=== PATIENT | female | born 1950 | race Caucasian/White ===

== ENCOUNTER 2020-03-10 23:53 | Emergency (ER) | payer OTHER ==
[2020-03-11] MEDS ORDERED: solu-MEDROL 125 MG IV ONE (00:02)
[2020-03-11] MEDS ORDERED: PROVENTIL 2.5 MG/3 ML NEB IH ONE ×2 (00:02→00:20)
--- NOTE | 2020-03-11 00:02 | ERPHSYRPT ---
- History of Present Illness Time Seen by Provider: 03/11/20 00:02 Source: patient, EMS Exam Limitations: no limitations Physician History: This is a 69-year-old white female who a few days ago was cleaning using bleach and has noticed that she has had wheezing, cough and shortness of breath over the last few days. Symptoms were worse tonight. Patient denies fever. She does not have chest pain. She does feel as though there was a little bit of a tightness in her neck when swallowing and breathing. She has no abdominal pain she is had no nausea vomiting or diarrhea. She has not been exposed to anybody that she is aware of that has had tested positive for the COVID-19 virus. Timing/Duration: day(s) Cough Quality/Degree: mild, dry cough Possible Cause: no prior episodes Associated Symptoms: cough, shortness of breath (Mild), No fever, No chills, No chest pain/soreness, No muscle aches Allergies/Adverse Reactions: aspirin Allergy (Verified 03/11/20 00:09) naproxen Allergy (Verified 03/11/20 00:09) Home Medications: Dexlansoprazole [Dexilant] 60 mg PO DAILY 03/11/20 [History] Divalproex Sodium [Depakote] 500 mg PO BID 03/11/20 [History] Furosemide 40 mg PO DAILY 03/11/20 [History] Meclizine HCl 25 mg PO DAILY 03/11/20 [History] Omeprazole 40 mg PO DAILY 03/11/20 [History] Phenytoin Sodium Extended [Dilantin] 200 mg PO BID 03/11/20 [History] Trazodone HCl 50 mg [Desyrel 50 mg] 50 mg PO DAILY 03/11/20 [History] atenoloL [Atenolol] 25 mg PO DAILY 03/11/20 [History] Travel Risk - International Travel Have you traveled outside of the country in past 3 weeks: No - Coronavirus Screening Are you exhibiting any of the following symptoms?: Yes Symptoms: Cough: New Onset, Shortness of Breath Close contact with a COVID-19 positive Pt in past 14-21 Days: No - Review of Systems Constitutional: No Symptoms Eyes: No Symptoms Ears, Nose, & Throat: No Symptoms Respiratory: Cough, Dyspnea (Mild), No Stridor, No Wheezing Cardiac: No Symptoms Abdominal/Gastrointestinal: No Symptoms Genitourinary Symptoms: No Symptoms Musculoskeletal: No Symptoms Skin: No Symptoms Neurological: No Symptoms Psychological: No Symptoms Endocrine: No Symptoms Hematologic/Lymphatic: No Symptoms Immunological/Allergic: No Symptoms All Other Systems: Reviewed and Negative - Past Medical History Pertinent Past Medical History: Yes Neurological History: No Pertinent History ENT History: No Pertinent History Cardiac History: No Pertinent History Respiratory History: No Pertinent History Endocrine Medical History: No Pertinent History Musculoskeletal History: No Pertinent History GI Medical History: No Pertinent History History: No Pertinent History Psycho-Social History: No Pertinent History Female Reproductive Disorders: No Pertinent History - Past Surgical History Neuro Surgical History: No Pertinent History Cardiac: No Pertinent History Respiratory: No Pertinent History Gastrointestinal: No Pertinent History Genitourinary: No Pertinent History Musculoskeletal: No Pertinent History Female Surgical History: No Pertinent History - Nursing Vital Signs Nursing Vital Signs: Initial Vital Signs Temperature 98.5 F 03/11/20 00:00 Pulse Rate 86 03/11/20 00:00 Respiratory Rate 17 03/11/20 00:00 Blood Pressure 147/86 03/11/20 00:00 O2 Sat by Pulse Oximetry 97 03/11/20 00:00 Pain Scale Pain Intensity 0 - Physical Exam General Appearance: mild distress, alert, anxiety Eye Exam: PERRL/EOMI, eyes nml inspection Ears, Nose, Throat Exam: normal ENT inspection, moist mucous membranes Neck Exam: normal inspection, non-tender, supple, full range of motion Respiratory Exam: normal breath sounds, lungs clear, airway intact, No chest tenderness, No respiratory distress, No rhonchi, No wheezing, No stridor Cardiovascular Exam: regular rate/rhythm, normal heart sounds, normal peripheral pulses Gastrointestinal/Abdomen Exam: soft, normal bowel sounds, No tenderness Pelvic Exam: not done Rectal Exam: not done Back Exam: normal inspection, normal range of motion, No CVA tenderness, No vertebral tenderness Extremity Exam: normal inspection, normal range of motion, pelvis stable Neurologic Exam: alert, oriented x 3, cooperative, barrel centerer II-XII nml as tested, normal mood/affect, nml cerebellar function, nml station & gait, sensation nml Skin Exam: normal color, warm, dry Lymphatic Exam: No adenopathy O2 Delivery: Room Air - Course Nursing assessment & vital signs reviewed: Yes EKG Interpreted by Me: RATE (81), Sinus Rhythm, NORMAL AXIS, NORMAL INTERVALS, NORMAL QRS, Other (No acute ischemic changes. 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 STAT Care 03/11/20 00:03 Active EKG-ER Only STAT Care 03/11/20 00:02 Active IV Insertion STAT Care 03/11/20 00:02 Active Pulse Oximetry (ED) STAT Care 03/11/20 00:02 Active CHEST 1 VIEW (PORTABLE) Stat Exams 03/11/20 00:03 Taken BLOOD CULTURE Stat Lab 03/11/20 01:10 Received CBC W DIFF Stat Lab 03/11/20 01:00 Completed CMP Stat Lab 03/11/20 01:00 Completed Lactic Acid Stat Lab 03/11/20 01:10 Completed Manual Differential NC Stat Lab 03/11/20 01:00 Completed NT PRO BNP Stat Lab 03/11/20 01:00 Completed TROPONIN Q3H Lab 03/11/20 01:00 Completed TROPONIN Q3H Lab 03/11/20 03:15 Ordered TROPONIN Q3H Lab 03/11/20 06:15 Ordered TROPONIN Q3H Lab 03/11/20 09:15 Ordered TROPONIN Q3H Lab 03/11/20 12:15 Ordered Respiratory Therapy Assessment DAILY RT 03/11/20 00:24 Completed Medication Summary Discontinued Medications Generic Name Dose Route Start Last Admin Trade Name Luis Aq PRN Reason Stop Dose Admin Albuterol Sulfate 2.5 mg 03/11/20 00:02 03/11/20 00:22 Proventil 2.5 Mg/3 Ml Neb IH 03/11/20 00:03 2.5 mg STAT ONE Administration Albuterol Sulfate Confirm 03/11/20 00:20 Proventil 2.5 Mg/3 Ml Neb Administered 03/11/20 00:21 Dose 2.5 mg IH .STK-MED ONE Divalproex Sodium 500 mg 03/11/20 01:[address] 250 Mg Tab PO 03/11/20 01:49 STAT ONE Methylprednisolone Sodium Succinate 125 mg 03/11/20 00:02 03/11/20 00:41 Solu-Medrol 125 Mg IV 03/11/20 00:03 125 mg STAT ONE Administration Methylprednisolone Sodium Succinate Confirm 03/11/20 00:39 Solu-Medrol 125 Mg Administered 03/11/20 00:40 Dose 125 mg .ROUTE .STK-MED ONE Phenytoin Sodium 200 mg 03/11/20 01:47 Dilantin 100 Mg PO 03/11/20 01:48 STAT ONE Lab/Rad Data: Laboratory Result Diagrams 03/11/20 01:00 03/11/20 01:00 Laboratory Results 03/11/20 03/11/20 03/11/20 Range/Units 01:10 01:00 01:00 WBC (4.0-10.5) K/mm3 RBC (4.1-5.4) M/mm3 Hgb (12.0-16.0) gm/dl Hct (35-47) % MCV (78-100) fl MCH (26-32) pg MCHC (32-36) g/dl RDW (11.5-14.0) % Plt Count (150-450) K/mm3 MPV (7.5-11.0) fl Sodium 138 (137-145) mmol/L Potassium 3.8 (3.5-5.1) mmol/L Chloride 104 (98-107) mmol/L Carbon Dioxide 26 (22-30) mmol/L Anion Gap 11.9 (5-15) MEQ/L BUN 27 H (7-17) mg/dL Creatinine 0.71 (0.52-1.04) mg/dL Estimated GFR > 60.0 ML/MIN Glucose 139 H (74-106) mg/dL Lactic Acid 2.2 H (0.4-2.0) Calcium 8.7 (8.4-10.2) mg/dL Total Bilirubin 0.30 (0.2-1.3) mg/dL AST 26 (14-36) U/L ALT 19 (0-35) U/L Alkaline Phosphatase 77 (38-126) U/L Troponin I < 0.012 (0.000-0.034) ng/mL NT-Pro-B Natriuret Pep 68.7 (0-900) pg/mL Serum Total Protein 6.7 (6.3-8.2) g/dL Albumin 3.8 (3.5-5.0) g/dL 03/11/20 Range/Units 01:00 WBC 8.2 (4.0-10.5) K/mm3 RBC 4.13 (4.1-5.4) M/mm3 Hgb 13.6 (12.0-16.0) gm/dl Hct 42.0 (35-47) % MCV 101.7 H (78-100) fl MCH 32.9 H (26-32) pg MCHC 32.4 (32-36) g/dl RDW 13.1 (11.5-14.0) % Plt Count 199 (150-450) K/mm3 MPV 10.5 (7.5-11.0) fl Sodium (137-145) mmol/L Potassium (3.5-5.1) mmol/L Chloride (98-107) mmol/L Carbon Dioxide (22-30) mmol/L Anion Gap (5-15) MEQ/L BUN (7-17) mg/dL Creatinine (0.52-1.04) mg/dL Estimated GFR ML/MIN Glucose (74-106) mg/dL Lactic Acid (0.4-2.0) Calcium (8.4-10.2) mg/dL Total Bilirubin (0.2-1.3) mg/dL AST (14-36) U/L ALT (0-35) U/L Alkaline Phosphatase (38-126) U/L Troponin I (0.000-0.034) ng/mL NT-Pro-B Natriuret Pep (0-900) pg/mL Serum Total Protein (6.3-8.2) g/dL Albumin (3.5-5.0) g/dL - Progress Progress: improved, re-examined Air Movement: good Progress Note: 03/11/20 02:25 cHest x-ray reveals no acute pulmonary process Blood Culture(s) Obtained: Yes Antibiotics given: No Counseled pt/family regarding: lab results, diagnosis, need for follow-up, rad results - Departure Departure Disposition: Home Clinical Impression: Acute chemical bronchitis Condition: Stable Critical Care Time: No Referrals: DOCTOR,NO FAMILY [Primary Care Provider] - Additional Instructions: Drink plenty fluids. Take medication as prescribed. Follow-up with your primary care provider for persistent symptoms. Return to the emergency department if symptoms worsen Prescriptions: Prednisone 10 mg [Deltasone 10 mg] 10 mg PO TID #12 tablet Albuterol 8 gm Mdi Hfa [Ventolin Hfa MDI] 8 gm IH Q4H #1 [email or web address]
[2020-03-11] MEDS ORDERED: solu-MEDROL 125 MG ONE (00:39)
[2020-03-11 01:24] LABS: Hemoglobin 13.6 gm/dl (12.0-16.0); Mean Cell Volume 101.7 fl (78-100); Mean Corpuscular Hemoglobin 32.9 pg (26-32); Mean Corpuscular Hgb Concent. 32.4 g/dl (32-36); Mean Platelet Volume 10.5 fl (7.5-11.0); Platelet Count 199 K/mm3 (150-450); Red Blood Count 4.13 M/mm3 (4.1-5.4); Red Cell Distribution Width 13.1 % (11.5-14.0); White Blood Count 8.2 K/mm3 (4.0-10.5)
[2020-03-11] MEDS ORDERED: Dilantin 100 MG PO ONE (01:47)
[2020-03-11 01:48] LABS: ALBUMIN 3.8 g/dL (3.5-5.0); ALKALINE PHOSPHATASE 77 U/L (38-126); ANION GAP 11.9 MEQ/L (5-15); BLOOD UREA NITROGEN 27 mg/dL (7-17); CHLORIDE 104 mmol/L (98-107); Calcium 8.7 mg/dL (8.4-10.2); Carbon Dioxide 26 mmol/L (22-30); Creatinine 1 0.71 mg/dL (0.52-1.04); Glucose 139 mg/dL (74-106); NT PRO BNP 68.7 pg/mL (0-900); Potassium 3.8 mmol/L (3.5-5.1); SGOT/AST 26 U/L (14-36); SGPT/ALT 19 U/L (0-35); SODIUM 138 mmol/L (137-145); Total Protein 6.7 g/dL (6.3-8.2)
[2020-03-11 02:21] LABS: INFLUENZA A NEGATIVE (NEGATIVE); INFLUENZA B NEGATIVE (NEGATIVE); RESPIRATORY SYNCTIAL VIRUS NEGATIVE (Negative)
[2020-03-11 04:00] VITALS: PULSE 78
[2020-03-11 04:01] VITALS: BP 166/90; O2SAT 98
[2020-03-11 04:16] LABS: Eosinophil 4 % (0.00-3.0); Lymphocytes 47 % (24-44); Monocyte 8 % (0.0-12.0); Neutrophils 41 % (36.0-66.0); Total Cells Counted 100
[2020-03-11 04:18] LABS: ANISOCYTOSIS 1+; Platelet Estimate NORMAL (NORMAL)
--- NOTE | 2020-03-11 09:31 | XRAY ---
Indication: Cough and wheezing. Comparison: None Portable apical lordotic chest demonstrates left mid to lower lung subsegmental atelectasis/scarring, scattered bilateral calcified granulomas, and right hemidiaphragm elevation. Remaining heart and upper lung unremarkable. Bony thorax demonstrates mild degenerative changes and lower cervical fusion.
== END 2020-03-11 03:55 | disposition home or self-care (01) ==
LOC: ED 23:53
DX: J68.0 Bronchitis and pneumonitis due to chemicals, gases, fumes and vapors (principal)
CPT/HCPCS: 36000; 36415; 71045; 80053; 83605; 83880; 84484; 85025; 86769; 87040; 87631; 93005; 93041; 94640; 94760; 96374; 99284; J2930; J7609; A9270-GY

== ENCOUNTER 2021-08-13 16:19 | Emergency (ER) | payer MEDICARE ==
[2021-08-13] MEDS ORDERED: DUONEB 0.5-3 MG/3 ml Neb IH ONE ×2 (16:40→17:14)
[2021-08-13] MEDS ORDERED: solu-MEDROL 125 MG, Sterile H2O 10 ml 2 ML IV ONE ×2 (16:40)
[2021-08-13] MEDS ORDERED: solu-MEDROL ONE (16:51)
[2021-08-13] MEDS ORDERED: Magnesium 1 Gm / 100 Ml D5W*** 100 ML IV ONE ×2 (16:51→18:21)
[2021-08-13] MEDS ORDERED: Sterile H2O 10 ml IJ ONE (16:51)
[2021-08-13] MEDS: Magnesium 1 Gm / 100 Ml D5W*** 100 ML IV SCH ×2 (16:52→18:23)
[2021-08-13 17:08] LABS: Hematocrit 39.9 % (35-47); Hemoglobin 12.7 gm/dl (12.0-16.0); Mean Cell Volume 104.7 fl (78-100); Mean Corpuscular Hemoglobin 33.3 pg (26-32); Mean Corpuscular Hgb Concent. 31.8 g/dl (32-36); Platelet Count 217 K/mm3 (150-450); Red Blood Count 3.81 M/mm3 (4.1-5.4); Red Cell Distribution Width 12.9 % (11.5-14.0); White Blood Count 6.7 K/mm3 (4.0-10.5)
[2021-08-13 17:27] LABS: INFLUENZA A NEGATIVE (NEGATIVE); INFLUENZA B NEGATIVE (NEGATIVE)
[2021-08-13 17:32] LABS: ALBUMIN 3.9 g/dL (3.5-5.0); ALKALINE PHOSPHATASE 62 U/L (38-126); ANION GAP 10.7 MEQ/L (5-15); BLOOD UREA NITROGEN 22 mg/dL (7-17); CHLORIDE 101 mmol/L (98-107); Calcium 8.6 mg/dL (8.4-10.2); Carbon Dioxide 30 mmol/L (22-30); Creatinine 1 0.94 mg/dL (0.52-1.04); EST GLOMERULAR FILTRATION RATE > 60.0 ML/MIN; Glucose 122 mg/dL (74-106); NT PRO BNP 250 pg/mL (0-900); Potassium 4.7 mmol/L (3.5-5.1); SGOT/AST 24 U/L (14-36); SGPT/ALT 18 U/L (0-35); SODIUM 137 mmol/L (137-145); Total Protein 6.8 g/dL (6.3-8.2)
[2021-08-13 17:49] LABS: ATYPICAL LYMPHS 5 %; Eosinophil 4 % (0.00-3.0); Lymphocytes 25 % (24-44); Monocyte 6 % (0.0-12.0); Neutrophils 60 % (36.0-66.0); Platelet Estimate NORMAL (NORMAL); Total Cells Counted 100
--- NOTE | 2021-08-13 18:24 | ERPHSYRPT ---
- History of Present Illness Time Seen by Provider: 08/13/21 16:22 Source: patient Exam Limitations: no limitations Patient Subjective Stated Complaint: Patient states she has been having SOB, cough, and fever x 7 days Triage Nursing Assessment: patient to ed with sob cough and fever x 7 days, patient audibly wheezing and has diminished breath sounds in lower lobes. Patient is pale warm and dry and retracting at this time with labored breathing. Patient has occasional dry cough. Physician History: Patient here with cough, fever, chills. Patient appears to have a viral illness. Also history of COPD. Patient is unvaccinated against COVID-19. Patient initially presented with some wheezing and raspiness. Was given a breathing treatment and steroids in route. No other falls or trauma. Patient has not followed up with her PCP. Symptoms have been ongoing for 7 days. Patient has no active chest pain. No crushing chest pain. No signs or symptoms of a aortic dissection or PE. Timing/Duration: day(s) Severity: mild Modifying Factors: Improves With: medication, movement, rest, acetaminophen Associated Symptoms: shortness of breath Allergies/Adverse Reactions: aspirin Allergy (Verified 03/11/20 00:09) naproxen Allergy (Verified 03/11/20 00:09) Home Medications: Dexlansoprazole [Dexilant] 60 mg PO DAILY 03/11/20 [History] Divalproex Sodium [Depakote] 500 mg PO BID 03/11/20 [History] Furosemide 40 mg PO DAILY 03/11/20 [History] Meclizine HCl 25 mg PO DAILY 03/11/20 [History] Omeprazole 40 mg PO DAILY 03/11/20 [History] Phenytoin Sodium Extended [Dilantin] 200 mg PO BID 03/11/20 [History] Trazodone HCl 50 mg [Desyrel 50 mg] 50 mg PO DAILY 03/11/20 [History] atenoloL [Atenolol] 25 mg PO DAILY 03/11/20 [History] Hydrocodone/Acetaminophen [Hydrocodone-Acetamin 10-325 mg] 1 tab PO PRN 08/13/21 [History] Hx Tetanus, Diphtheria Vaccination/Date Given: Yes Hx Influenza Vaccination/Date Given: Yes Hx Pneumococcal Vaccination/Date Given: No Travel Risk - International Travel Have you traveled outside of the country in past 3 weeks: No - Coronavirus Screening Are you exhibiting any of the following symptoms?: Yes Symptoms: Fever, Cough: New Onset, Shortness of Breath Close contact with a COVID-19 positive Pt in past 14-21 Days: No - Vaccine Status Have you recieved a Covid-19 vaccination: No - Review of Systems Constitutional: No Fever, No Chills Eyes: No Symptoms Ears, Nose, & Throat: No Symptoms Respiratory: Dyspnea, Wheezing, No Cough Cardiac: No Chest Pain, No Edema, No Syncope Abdominal/Gastrointestinal: No Abdominal Pain, No Nausea, No Vomiting, No Diarrhea Genitourinary Symptoms: No Dysuria Musculoskeletal: No Back Pain, No Neck Pain Skin: No Rash Neurological: No Dizziness, No Focal Weakness, No Sensory Changes Psychological: No Symptoms Endocrine: No Symptoms All Other Systems: Reviewed and Negative - Past Medical History Pertinent Past Medical History: Yes Neurological History: Epilepsy ENT History: No Pertinent History Cardiac History: Hypertension Respiratory History: Asthma, COPD Endocrine Medical History: No Pertinent History Musculoskeletal History: Arthritis, Osteoporosis GI Medical History: No Pertinent History History: No Pertinent History Psycho-Social History: No Pertinent History Female Reproductive Disorders: No Pertinent History - Past Surgical History Past Surgical History: Yes Neuro Surgical History: No Pertinent History Cardiac: No Pertinent History Respiratory: No Pertinent History Gastrointestinal: No Pertinent History Genitourinary: No Pertinent History Musculoskeletal: No Pertinent History Female Surgical History: No Pertinent History - Social History Smoking Status: Never smoker Exposure to second hand smoke: Yes Drug Use: none Patient Lives Alone: Yes - Nursing Vital Signs Nursing Vital Signs: Initial Vital Signs Temperature 97.5 F 08/13/21 16:21 Pulse Rate 68 08/13/21 16:21 Respiratory Rate 20 08/13/21 16:21 Blood Pressure 165/96 08/13/21 16:21 O2 Sat by Pulse Oximetry 94 L 08/13/21 16:21 Pain Scale Pain Intensity 5 - Physical Exam General Appearance: no apparent distress, alert Eye Exam: PERRL/EOMI, eyes nml inspection Ears, Nose, Throat Exam: normal ENT inspection, TMs normal, pharynx normal, moist mucous membranes Neck Exam: normal inspection, non-tender, supple, full range of motion Respiratory Exam: wheezing, No respiratory distress Cardiovascular Exam: regular rate/rhythm, normal heart sounds, normal peripheral pulses Gastrointestinal/Abdomen Exam: soft, normal bowel sounds, No tenderness, No mass Back Exam: normal inspection, normal range of motion, No CVA tenderness, No vertebral tenderness Extremity Exam: normal inspection, normal range of motion, pelvis stable Neurologic Exam: alert, oriented x 3, cooperative, normal mood/affect, nml cerebellar function, nml station & gait, sensation nml, No motor deficits Skin Exam: normal color, warm, dry, No rash Lymphatic Exam: No adenopathy SpO2: 97 - Course Nursing assessment & vital signs reviewed: Yes EKG Interpreted by Me: Sinus Rhythm Ordered Tests: Active Orders 24 hr Category Date Time Status 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 [employer] STAT Care 08/13/21 16:40 Active CHEST 1 VIEW (PORTABLE) Stat Exams 08/13/21 17:13 Taken CBC W DIFF Stat Lab 08/13/21 17:03 Completed CMP Stat Lab 08/13/21 17:03 Completed INFLUENZA A+B WINNIE Stat Lab 08/13/21 17:03 Completed Manual Differential NC Stat Lab 08/13/21 17:03 Completed NT PRO BNP Stat Lab 08/13/21 17:03 Completed TROPONIN Q3H Lab 08/13/21 17:03 Completed TROPONIN Q3H Lab 08/14/21 01:45 Ordered TROPONIN Q3H Lab 08/14/21 04:45 Ordered Respiratory Therapy Assessment ONCE RT 08/13/21 17:56 Active Medication Summary Generic Name Dose Route Start Last Admin Trade Name Freq PRN Reason Stop Dose Admin Magnesium Sulfate/Dextrose 100 mls @ 100 mls/hr 08/13/21 16:45 08/13/21 18:23 Magnesium 1 Gm / 100 Ml D5w IV 08/13/21 18:44 100 mls/hr Q1H ADRIANA Administration Discontinued Medications Generic Name Dose Route Start Last Admin Trade Name Freq PRN Reason Stop Dose Admin Albuterol/Ipratropium 3 ml 08/13/21 16:40 08/13/21 17:20 Ipratropium/Albuterol Sulfate 3 Ml Ampul.Neb IH 08/13/21 16:41 3 ml STAT ONE Administration Albuterol/Ipratropium Confirm 08/13/21 17:14 Ipratropium/Albuterol Sulfate 3 Ml Ampul.Neb Administered 08/13/21 17:15 Dose 3 ml IH .STK-MED ONE Methylprednisolone Sodium 0 mg 08/13/21 16:40 08/13/21 16:52 Succinate 125 mg/ Sterile IV 08/13/21 16:41 125 mg Water 2 ml STAT ONE Administration Methylprednisolone Sodium Succinate Confirm 08/13/21 16:51 Methylprednis Sod Succ 125 Mg/2 Ml Vial Administered 08/13/21 16:52 Dose 125 mg .ROUTE .[employer] ONE Sterile Water Confirm 08/13/21 16:51 Water For Injection,Sterile 10 Ml Vial Administered 08/13/21 16:52 Dose 10 ml IJ .[employer] ONE Lab/Rad Data: Laboratory Result Diagrams 08/13/21 17:03 08/13/21 17:03 Laboratory Results 08/13/21 08/13/21 08/13/21 Range/Units 17:03 17:03 17:03 WBC 6.7 (4.0-10.5) K/mm3 RBC 3.81 L (4.1-5.4) M/mm3 Hgb 12.7 (12.0-16.0) gm/dl Hct 39.9 (35-47) % MCV 104.7 H (78-100) fl MCH 33.3 H (26-32) pg MCHC 31.8 L (32-36) g/dl RDW 12.9 (11.5-14.0) % Plt Count 217 (150-450) K/mm3 MPV 10.0 (7.5-11.0) fl Segmented Neutrophils 60 (36.0-66.0) % Lymphocytes (Manual) 25 (24-44) % Monocytes (Manual) 6 (0.0-12.0) % Eosinophils (Manual) 4 H (0.00-3.0) % Atypical Lymphocytes 5 % Platelet Estimate NORMAL (NORMAL) RBC Morphology NORMAL Sodium 137 (137-145) mmol/L Potassium 4.7 (3.5-5.1) mmol/L Chloride 101 (98-107) mmol/L Carbon Dioxide 30 (22-30) mmol/L Anion Gap 10.7 (5-15) MEQ/L BUN 22 H (7-17) mg/dL Creatinine 0.94 (0.52-1.04) mg/dL Estimated GFR > 60.0 ML/MIN Glucose 122 H (74-106) mg/dL Calcium 8.6 (8.4-10.2) mg/dL Total Bilirubin 0.50 (0.2-1.3) mg/dL AST 24 (14-36) U/L ALT 18 (0-35) U/L Alkaline Phosphatase 62 (38-126) U/L Troponin I < 0.012 (0.000-0.034) ng/mL NT-Pro-B Natriuret Pep 250 (0-900) pg/mL Serum Total Protein 6.8 (6.3-8.2) g/dL Albumin 3.9 (3.5-5.0) g/dL Influenza Type A Ag (NEGATIVE) Influenza Type B Ag (NEGATIVE) 08/13/21 Range/Units 17:03 WBC (4.0-10.5) K/mm3 RBC (4.1-5.4) M/mm3 Hgb (12.0-16.0) gm/dl Hct (35-47) % MCV (78-100) fl MCH (26-32) pg MCHC (32-36) g/dl RDW (11.5-14.0) % Plt Count (150-450) K/mm3 MPV (7.5-11.0) fl Segmented Neutrophils (36.0-66.0) % Lymphocytes (Manual) (24-44) % Monocytes (Manual) (0.0-12.0) % Eosinophils (Manual) (0.00-3.0) % Atypical Lymphocytes % Platelet Estimate (NORMAL) RBC Morphology Sodium (137-145) mmol/L Potassium (3.5-5.1) mmol/L Chloride (98-107) mmol/L Carbon Dioxide (22-30) mmol/L Anion Gap (5-15) MEQ/L BUN (7-17) mg/dL Creatinine (0.52-1.04) mg/dL Estimated GFR ML/MIN Glucose (74-106) mg/dL Calcium (8.4-10.2) mg/dL Total Bilirubin (0.2-1.3) mg/dL AST (14-36) U/L ALT (0-35) U/L Alkaline Phosphatase (38-126) U/L Troponin I (0.000-0.034) ng/mL NT-Pro-B Natriuret Pep (0-900) pg/mL Serum Total Protein (6.3-8.2) g/dL Albumin (3.5-5.0) g/dL Influenza Type A Ag NEGATIVE (NEGATIVE) Influenza Type B Ag NEGATIVE (NEGATIVE) - Progress Progress: improved Progress Note: 08/13/21 18:39 We'll obtain basic labs, fluids, EKG, troponin, chest x-ray - I feel comfortable with one time negative troponin given symptoms have improved and started greater then 6 hours ago. - EKG shows no ST changes - my read. See full read below. - O2 saturations consistently greater than 95%. - CXR shows no pneumonia, pneumothorax - my read Patient was treated with magnesium, second breathing treatment. Already received steroids. Patient overall looking and feeling improved. She was able to get up and ambulate to the bathroom without difficulty. She had no drop in her O2 saturations at this point in time. I did discuss going home with her. She requested that we do a Z-Yao. I do feel this is reasonable given she was likely does have a COPD exacerbation. We will do a Z-Yao, prednisone going home. Patient had no drop in her O2 sats. Heart rate and rest of vital signs are stable. Negative cardiac markers after 1 week of sickness. Plan to discharge patient home. Plan of care was discussed with patient and all questions answered. The patient is agreeable to be discharged home and both verbal and printed discharge instructions were provided.The patient agreed to seek outpatient follow up as discussed. The patient was given strict instructions to return to the emergency department for worsening symptoms or any other emergent concerns. The patient verbalized understanding. Counseled pt/family regarding: lab results, diagnosis, need for follow-up - Departure Departure Disposition: Home Clinical Impression: Viral illness, COPD exacerbation Condition: Stable Critical Care Time: No Referrals: ISACC CALABRESE NP [Primary Care Provider] - Follow up/PCP as directed Instructions: Chronic Obstructive Pulmonary Disease, Shortness of Breath (Dyspnea) (DC), Exacerbation of COPD (DC) Additional Instructions: You appear to be having a COPD exacerbation in the setting of a viral illness.Cough, congestion, and other symptoms appear to be viral in etiology. Symptomatic care: saline and suction to nose prn. Run a humidifier in bedroom. Elevate HOB to sleep and encourage fluids. They should use Tylenol and motrin as needed for fever and pain control. Return if not improving or worsens. Will also give you a Z-Yao and steroids. This is for COPD exacerbation in the setting of a viral illness. Prescriptions: Prednisone 10 mg [Deltasone 10 mg] 40 mg PO DAILY 5 Days #100 tablet Azithromycin 250 mg [Zithromax 250 MG TABLET] 250 mg PO ZPACK #6 tablet
[2021-08-13 18:52] VITALS: BP 126/58; PULSE 72; O2SAT 93
--- NOTE | 2021-08-14 08:04 | XRAY ---
Indication: Cough and short of breath. Suspect Covid 19. Comparison: March 11, 2020. Portable apical lordotic chest again demonstrates left mid lower lung subsegmental atelectasis/scarring, tiny scattered calcified granulomas, and right hemidiaphragm elevation. Heart borderline enlarged. Bony thorax intact again with osteopenia, degenerative changes, and lower cervical fusion hardware. Impression: Nonacute chest with chronic features.
== END 2021-08-13 19:02 | disposition home or self-care (01) ==
LOC: ED 16:19
DX: B34.9 Viral infection, unspecified (principal); J44.1 Chronic obstructive pulmonary disease with (acute) exacerbation; R05.9 Cough, unspecified; R50.9 Fever, unspecified; I10 Essential (primary) hypertension; Z79.891 Long term (current) use of opiate analgesic; Z79.52 Long term (current) use of systemic steroids; Z79.899 Other long term (current) drug therapy
CPT/HCPCS: 36415; 71045; 80053; 83880; 84484; 85025; 87400; 93041; 94640; 96374; 99284; U0003; J2930; J3475; A9270-GY

== ENCOUNTER 2021-10-04 12:50 | Day surgery (SDC) | payer MEDICARE ==
[2021-10-04] MEDS ORDERED: BUPIVACAINE 0.5% VIAL IJ ONE (12:51)
[2021-10-04] MEDS ORDERED: Depo-Medrol 40 MG/ML IM ONE (12:51)
[2021-10-04] MEDS ORDERED: Lactated Ringers 1,000 ML IV ONE (14:15)
[2021-10-04] MEDS ORDERED: DIPRIVAN 200 MG/20 ML IV ONE (14:56)
--- NOTE | 2021-10-04 16:58 | XRAY ---
Indication: Right SI joint injection. Intraoperative fluoroscopy provided for 14 seconds. 2 digital spot image submitted for interpretation demonstrates posterior needle tip projecting over the inferior right SI joint. Correlate with intraoperative findings/report.
--- NOTE | 2021-10-04 17:04 | XRAY ---
14 seconds fluoroscopy time in surgery for injection of the right SI joint.
== END 2021-10-04 15:21 | disposition home or self-care (01) ==
LOC: SDC-PAIN 12:50
PROVIDERS: ATTEND Psychiatry & Neurology Pain Medicine
DX: M46.1 Sacroiliitis, not elsewhere classified (principal); Z79.899 Other long term (current) drug therapy
CPT/HCPCS: 27096; 72100; 77002; G0260; 99100; J1030; J2704

== ENCOUNTER 2022-01-11 13:02 | Inpatient (IN) | payer MEDICARE ==
[2022-01-11] MEDS ORDERED: Zofran 4 MG/2 ML VIAL IV ONE (13:33)
[2022-01-11] MEDS ORDERED: MORPHINE SULFATE 4 MG INJ IV ONE ×2 (13:33→15:48)
[2022-01-11] MEDS ORDERED: Zofran 4 MG/2 ML VIAL ONE (13:48)
[2022-01-11] MEDS ORDERED: MORPHINE SULFATE 4 MG INJ ONE ×2 (13:48→15:48)
--- NOTE | 2022-01-11 13:54 | ERPHSYRPT ---
- History of Present Illness Time Seen by Provider: 01/11/22 13:33 Source: patient, EMS Exam Limitations: no limitations Patient Subjective Stated Complaint: weakness Triage Nursing Assessment: Patient brought into ED per EMS and transferred to bed with assist of 3. Patient A+O X3. Patient's skin pink, warm and dry. Patient complains of pain to left side of abdominal fold that is making it difficult to ambulate. Clusters of open blisters noted to left side abdominal fold. Patient complains of pain 5/10. Patient complains of weakness and not eating or drinking much the past couple of days. Physician History: 71 years old female history of hypertension, hyperlipidemia, COPD presented in the ER with chief complaint of generalized weakness fatigue and tiredness for the last couple of days with decreased oral intake and worsening of overall fatigue. Patient also reports having blisters/sore spots on the left groin area/lower abdominal fold which she has been treating her at home with [id number] triple antibiotic with no improvement and it hurts to ambulate. She also has mild nonproductive cough for the last couple of days without any chest pain palpitations or shortness of breath. No fever or chills reported. Timing/Duration: day(s) (2), gradual onset, worse Severity: moderate Modifying Factors: Worsens With: movement Associated Symptoms: loss of appetite, malaise, weakness Allergies/Adverse Reactions: aspirin Allergy (Verified 01/11/22 17:49) Nausea naproxen Allergy (Verified 01/11/22 17:49) Nausea ketorolac [From Toradol] Adverse Reaction (Verified 01/11/22 17:49) Nausea Home Medications: Divalproex Sodium [Depakote] 500 mg PO TID 03/11/20 [History] Furosemide 40 mg PO DAILY 03/11/20 [History] Omeprazole 40 mg PO BID 03/11/20 [History] Phenytoin Sodium Extended [Dilantin] 200 mg PO BID 03/11/20 [History] Trazodone HCl 50 mg [Desyrel 50 mg] 150 mg PO HS 03/11/20 [History] atenoloL [Atenolol] 25 mg PO DAILY 03/11/20 [History] Cholecalciferol (Vitamin D3) [Vitamin D3] 5,000 unit PO DAILY 01/11/22 [History] Folic Acid 0 mg PO DAILY 01/11/22 [History] Oxycodone HCl/Acetaminophen [Oxycodone-Acetaminophen 5-325] 1 each PO BIDPRN PRN 01/11/22 [History] Polyethylene Glycol 3350 17 gm [Miralax Powder 17GM PACKET] 17 gm PO DAILY 01/11/22 [History] Potassium Chloride 20 meq PO DAILY 01/11/22 [History] Ropinirole HCl 1 mg PO TID 01/11/22 [History] ondansetron HCL [Ondansetron HCl] 8 mg PO BID 01/11/22 [History] Hx Tetanus, Diphtheria Vaccination/Date Given: Yes Hx Influenza Vaccination/Date Given: Yes Hx Pneumococcal Vaccination/Date Given: No Immunizations Up to Date: Yes Travel Risk - International Travel Have you traveled outside of the country in past 3 weeks: No - Coronavirus Screening Are you exhibiting any of the following symptoms?: No Close contact with a COVID-19 positive Pt in past 14-21 Days: No - Vaccine Status Have you recieved a Covid-19 vaccination: No - Review of Systems Constitutional: No Symptoms Eyes: No Symptoms Ears, Nose, & Throat: No Symptoms Respiratory: Cough Cardiac: No Symptoms Abdominal/Gastrointestinal: Abdominal Pain Genitourinary Symptoms: No Symptoms Musculoskeletal: Arthralgias Skin: Rash, Skin Lesions Neurological: No Symptoms Endocrine: No Symptoms Hematologic/Lymphatic: No Symptoms Immunological/Allergic: No Symptoms - Past Medical History Pertinent Past Medical History: Yes Neurological History: Epilepsy ENT History: No Pertinent History Cardiac History: Hypertension Respiratory History: Asthma, COPD Endocrine Medical History: No Pertinent History Musculoskeletal History: Arthritis, Osteoporosis GI Medical History: No Pertinent History History: No Pertinent History Psycho-Social History: No Pertinent History Female Reproductive Disorders: No Pertinent History - Past Surgical History Past Surgical History: Yes Neuro Surgical History: No Pertinent History Cardiac: No Pertinent History Respiratory: No Pertinent History Gastrointestinal: No Pertinent History Genitourinary: No Pertinent History Musculoskeletal: No Pertinent History Female Surgical History: No Pertinent History - Social History Smoking Status: Never smoker Exposure to second hand smoke: Yes Drug Use: none Patient Lives Alone: Yes - Nursing Vital Signs Nursing Vital Signs: Initial Vital Signs Temperature 97.8 F 01/11/22 13:26 Pulse Rate 66 01/11/22 13:26 Respiratory Rate 18 01/11/22 13:26 Blood Pressure 124/78 01/11/22 13:26 O2 Sat by Pulse Oximetry 93 L 01/11/22 13:26 Pain Scale Pain Intensity 5 - Physical Exam General Appearance: no apparent distress, alert Eye Exam: PERRL/EOMI, other Ears, Nose, Throat Exam: normal ENT inspection, TMs normal, pharynx normal, moist mucous membranes Neck Exam: normal inspection, non-tender, full range of motion Respiratory Exam: rhonchi, wheezing Cardiovascular Exam: regular rate/rhythm, normal heart sounds Gastrointestinal/Abdomen Exam: soft, normal bowel sounds, No tenderness Back Exam: normal inspection, normal range of motion Extremity Exam: normal inspection, normal range of motion Neurologic Exam: alert, oriented x 3, cooperative, paint maker II-XII nml as tested Skin Exam: normal color, other (Multiple clusters/confluent vesicles and distinct groups with surrounding erythema. Tender to palpation.) SpO2 Interpretation: normal SpO2: 93 O2 Delivery: Room Air Ordered Tests: Medication Summary Generic Name Dose Route Start Last Admin Trade Name Freq PRN Reason Stop Dose Admin Acetaminophen 650 mg 01/11/22 17:41 Acetaminophen 325 Mg Tablet PO 02/10/22 17:40 Q4H PRN PRN PAIN AND/OR FEVER Acyclovir 800 mg 01/11/22 19:00 01/14/22 17:55 Acyclovir 800 Mg Tablet PO 02/10/22 18:59 800 mg 5XD ADRIANA Administration Albuterol/Ipratropium 3 ml 01/11/22 17:41 01/14/22 18:52 Ipratropium/Albuterol Sulfate 3 Ml Ampul.Neb IH 02/10/22 17:40 3 ml Q4HPRN PRN Administration SHORTNESS OF BREATH/WHEEZING Atenolol 25 mg 01/14/22 11:00 01/14/22 11:13 Atenolol 50 Mg Tablet PO 02/13/22 10:59 25 mg DAILY ADRIANA Administration Benzonatate 100 mg 01/14/22 10:11 01/14/22 11:13 Benzonatate 100 Mg Capsule PO 02/13/22 10:10 100 mg Q12H PRN PRN Administration COUGH Cholecalciferol 5,000 unit 01/14/22 11:00 01/14/22 11:03 Cholecalciferol (Vitamin D3) 1000 Unit Tablet PO 02/13/22 10:59 5,000 unit DAILY ADRIANA Administration Methylprednisolone Sodium 0 mg 01/13/22 14:00 01/14/22 13:51 Succinate 40 mg/ Sterile Water IV 02/12/22 13:59 40 mg 1 ml Q8HT ADRIANA Administration Divalproex Sodium 500 mg 01/11/22 22:00 01/14/22 13:52 Divalproex Sodium 250 Mg Tablet Delayed Release PO 02/10/22 21:59 500 mg TID ADRIANA Administration Folic Acid 0.5 mg 01/14/22 11:00 01/14/22 11:14 Folic Acid 1 Mg Tablet PO 02/13/22 10:59 0.5 mg DAILY ADRIANA Administration Furosemide 40 mg 01/14/22 11:00 01/14/22 11:15 Furosemide 40 Mg Tablet PO 02/13/22 10:59 40 mg DAILY ADRIANA Administration Gabapentin 300 mg 01/14/22 10:00 01/14/22 13:53 Gabapentin 300 Mg Capsule PO 02/13/22 09:59 300 mg TID ADRIANA Administration Sodium Chloride 1,000 mls @ 100 mls/hr 01/12/22 14:45 01/14/22 19:42 Sodium Chloride 0.9% 1000 Ml IV 02/11/22 14:44 100 mls/hr .Q10H ADRIANA Administration Morphine Sulfate 0 mg 01/12/22 14:47 01/14/22 18:02 Morphine Sulfate 30 Mg/30 Ml 1 Mg/Ml Vial IV 01/17/22 14:46 30 mg PRN PRN Administration Naloxone HCl 0.2 - 0.4 mg 01/12/22 15:15 Naloxone Hcl 0.4 Mg/Ml Ml IV 02/11/22 15:14 PRN PRN RESP. DEPRESSION / DLOC Nystatin 5 ml 01/12/22 13:00 01/14/22 17:54 Nystatin 60 Ml Suspension Bottle PO 02/11/22 12:59 5 ml QID ADRIANA Administration Ondansetron HCl 4 mg 01/11/22 17:41 Ondansetron Hcl 4 Mg/2 Ml Vial IV 02/10/22 17:40 Q6H PRN PRN NAUSEA/VOMITING Ondansetron HCl 8 mg 01/11/22 22:00 01/14/22 10:36 Zofran 4 Mg/Udtablet Orally Disintegrating PO 02/10/22 21:59 8 mg BID ADRIANA Administration Oxycodone/Acetaminophen 1 tab 01/11/22 18:39 01/12/22 13:40 Oxycodone / Apap 10/325 Mg 1 Tablet PO 01/16/22 18:38 1 tab Q4H PRN PRN Administration PAIN Pantoprazole Sodium 40 mg 01/12/22 10:00 01/14/22 10:14 Protonix (Pantoprazole) 40 Mg Tablet PO 02/10/22 21:59 40 mg BID ADRIANA Administration Phenytoin Sodium 200 mg 01/11/22 22:00 01/14/22 10:13 Phenytoin Sodium Extended 100 Mg Capsule PO 02/10/22 21:59 200 mg BID ADRIANA Administration Polyethylene Glycol 17 gm 01/14/22 10:00 01/14/22 11:01 Polyethylene Glycol 3350 17 Gm Packet PO 02/13/22 09:59 17 gm DAILY ADRIANA Administration Potassium Chloride 20 meq 01/14/22 11:00 01/14/22 11:15 Potassium Chloride Tab 10 Meq Tab PO 02/13/22 10:59 20 meq DAILY ADRIANA Administration Ropinirole HCl 1 mg 01/11/22 22:00 01/14/22 13:52 Ropinirole Hcl 0.5 Mg Tablet PO 02/10/22 21:59 1 mg TID ADRIANA Administration Trazodone HCl 150 mg 01/11/22 22:00 01/13/22 21:18 Trazodone Hcl 150 Mg Tablet PO 02/10/22 21:59 150 mg HS ADRIANA Administration Discontinued Medications Generic Name Dose Route Start Last Admin Trade Name Freq PRN Reason Stop Dose Admin Acyclovir 800 mg 01/11/22 16:20 01/11/22 16:40 Acyclovir 200 Mg Capsule PO 01/11/22 16:21 800 mg ONCE STA Administration Acyclovir Confirm 01/11/22 16:39 Acyclovir 200 Mg Capsule Administered 01/11/22 16:40 Dose 800 mg .ROUTE .STK-MED ONE Acyclovir Confirm 01/11/22 19:49 Acyclovir 200 Mg Capsule Administered 01/11/22 19:50 Dose 800 mg .ROUTE .STK-MED ONE Albuterol Sulfate 2.5 mg 01/12/22 10:00 01/12/22 18:08 Albuterol Sulfate 2.5 Mg/3 Ml Neb IH 02/11/22 09:59 2.5 mg TID ADRIANA Administration Methylprednisolone Sodium 0 mg 01/11/22 22:00 01/13/22 06:22 Succinate 80 mg/ Sterile Water IV 02/10/22 21:59 80 mg 2 ml Q8HT ADRIANA Administration Methylprednisolone Sodium 0 mg 01/13/22 14:00 Succinate 80 mg/ Sterile Water IV 02/12/22 13:59 2 ml Q8HT ADRIANA Cyanocobalamin 2,000 mcg 01/12/22 10:00 01/14/22 10:37 Cyanocobalamin 1000 Mcg/Ml Vial IM 01/14/22 10:01 2,000 mcg DAILY ADRIANA Administration Gabapentin 300 mg 01/12/22 14:45 01/13/22 21:18 Gabapentin 300 Mg Capsule PO 02/11/22 14:44 300 mg NOW ADRIANA Administration Gabapentin 300 mg 01/13/22 10:00 01/13/22 21:48 Gabapentin 300 Mg Capsule PO 01/13/22 22:01 Not Given BID ADRIANA Methylprednisolone Sodium Succinate Confirm 01/11/22 21:51 Methylprednis Sod Succ 125 Mg/2 Ml Vial Administered 01/11/22 21:52 Dose 125 mg .ROUTE .STK-MED ONE Methylprednisolone Sodium Succinate Confirm 01/12/22 05:56 Methylprednis Sod Succ 125 Mg/2 Ml Vial Administered 01/12/22 05:57 Dose 125 mg .ROUTE .STK-MED ONE Methylprednisolone Sodium Succinate Confirm 01/13/22 04:05 Methylprednisolone Sod Suc 40m 40 Mg/Ml Vial Administered 01/13/22 04:06 Dose 80 mg .ROUTE .STK-MED ONE Morphine Sulfate 4 mg 01/11/22 13:33 01/11/22 13:49 Morphine Sulfate 4 Mg/Ml Injection IV 01/11/22 13:34 4 mg STAT ONE Administration Morphine Sulfate Confirm 01/11/22 13:48 Morphine Sulfate 4 Mg/Ml Injection Administered 01/11/22 13:49 Dose 4 mg .ROUTE .STK-MED ONE Morphine Sulfate Confirm 01/11/22 15:48 Morphine Sulfate 4 Mg/Ml Injection Administered 01/11/22 15:49 Dose 4 mg .ROUTE .STK-MED ONE Morphine Sulfate 4 mg 01/11/22 15:48 01/11/22 15:48 Morphine Sulfate 4 Mg/Ml Injection IV 01/11/22 15:49 4 mg STAT ONE Administration Morphine Sulfate 2 mg 01/11/22 17:41 Morphine Sulfate 2 Mg/Ml Inj IV 01/16/22 17:40 Q4H PRN PRN PAIN Morphine Sulfate 2 mg 01/11/22 21:45 01/12/22 10:53 Morphine Sulfate 2 Mg/Ml Inj IV 01/16/22 21:44 2 mg Q4H PRN PRN Administration PAIN Non-Formulary Medication 1 each 01/12/22 14:39 01/12/22 15:12 Pharmacy Dose: Morphine Occupational Hygienist 1 Each Each IV 01/12/22 14:40 1 each STAT STA Administration Non-Formulary Medication 1 each 01/12/22 14:39 01/12/22 15:12 Pharmacy Dosing Request 01/12/22 14:40 1 each STAT ONE Administration Ondansetron HCl 4 mg 01/11/22 13:33 01/11/22 13:48 Ondansetron Hcl 4 Mg/2 Ml Vial IV 01/11/22 13:34 4 mg STAT ONE Administration Ondansetron HCl Confirm 01/11/22 13:48 Ondansetron Hcl 4 Mg/2 Ml Vial Administered 01/11/22 13:49 Dose 4 mg .ROUTE .STK-MED ONE Pantoprazole Sodium 40 mg 01/12/22 10:00 Pantoprazole 40 Mg Vial IV 02/11/22 09:59 Q24H10 ADRIANA Pantoprazole Sodium 80 mg 01/11/22 22:00 01/11/22 22:01 Protonix (Pantoprazole) 40 Mg Tablet PO 02/10/22 21:59 80 mg BID ADRIANA Administration Patient Own Medication 2 each 01/11/22 18:52 Patient Own Med Misc IH 02/10/22 18:51 Q4HPRN PRN SHORTNESS OF BREATH/WHEEZING Sterile Water Confirm 01/11/22 21:52 Water For Injection,Sterile 10 Ml Vial Administered 01/11/22 21:53 Dose 10 ml IJ .STK-MED ONE Lab/Rad Data: Laboratory Result Diagrams 01/11/22 13:33 01/11/22 14:18 Laboratory Results 01/11/22 01/11/22 01/11/22 Range/Units 16:47 16:11 14:18 WBC (4.0-10.5) x10^3/uL RBC (4.1-5.4) x10^6/uL Hgb (12.0-16.0) g/dL Hct (35-47) % MCV (78-100) fL MCH (26-32) pg MCHC (32-36) g/dL RDW (11.5-14.0) % Plt Count (150-450) x10^3/uL MPV (7.5-11.0) fL Gran % (36.0-66.0) % Immature Gran % (Auto) (0.00-0.4) % Nucleat RBC Rel Count (0.00-0.1) % Eos # (Auto) (0-0.5) x10^3/uL Immature Gran # (Auto) (0.00-0.03) x10^3u/L Absolute Lymphs (auto) (1.0-4.6) x10^3/uL Absolute Monos (auto) (0.0-1.3) x10^3/uL Absolute Nucleated RBC (0.00-0.01) x10^3u/L Lymphocytes % (24.0-44.0) % Monocytes % (0.0-12.0) % Eosinophils % (0.00-5.0) % Basophils % (0.0-0.4) % Absolute Granulocytes (1.4-6.9) x10^3/uL Basophils # (0-0.4) x10^3/uL Sodium (137-145) mmol/L Potassium (3.5-5.1) mmol/L Chloride (98-107) mmol/L Carbon Dioxide (22-30) mmol/L Anion Gap (5-15) MEQ/L BUN (7-17) mg/dL Creatinine (0.52-1.04) mg/dL Estimated GFR ML/MIN Glucose (74-106) mg/dL Lactic Acid (0.4-2.0) Calcium (8.4-10.2) mg/dL Magnesium (1.6-2.3) mg/dL Total Bilirubin (0.2-1.3) mg/dL AST (14-36) U/L ALT (0-35) U/L Alkaline Phosphatase (38-126) U/L Troponin I < 0.012 < 0.012 (0.000-0.034) ng/mL NT-Pro-B Natriuret Pep (0-900) pg/mL Serum Total Protein (6.3-8.2) g/dL Albumin (3.5-5.0) g/dL Urinalys Dipstick Clnc Urine Color (YELLOW) Urine Appearance (CLEAR) Urine pH (5-6) Ur Specific [place] (1.005-1.025) POC Urine Protein Conf (Negative) Urine Ketones (NEGATIVE) Urine Nitrite (NEGATIVE) Urine Bilirubin (NEGATIVE) Urine Urobilinogen (0-1) mg/dL Urine Leukocytes (NEGATIVE) Urine WBC (Auto) (0-5) /HPF Urine RBC (Auto) (0-2) /HPF U Epithel Cells (Auto) (FEW) /HPF Urine Bacteria (Auto) (NEGATIVE) /HPF Urine RBC (0-5) Timmy/ul Urine Mucus (Auto) (NEGATIVE) /HPF Ur Culture Indicated? Urine Glucose (NEGATIVE) mg/dL Influenza Type A Ag NEGATIVE (NEGATIVE) Influenza Type B Ag NEGATIVE (NEGATIVE) RSV (PCR) NEGATIVE (Negative) SARS-CoV-2 (PCR) NEGATIVE (NEGATIVE) 01/11/22 01/11/22 01/11/22 Range/Units 14:18 14:18 13:41 WBC (4.0-10.5) x10^3/uL RBC (4.1-5.4) x10^6/uL Hgb (12.0-16.0) g/dL Hct (35-47) % MCV (78-100) fL MCH (26-32) pg MCHC (32-36) g/dL RDW (11.5-14.0) % Plt Count (150-450) x10^3/uL MPV (7.5-11.0) fL Gran % (36.0-66.0) % Immature Gran % (Auto) (0.00-0.4) % Nucleat RBC Rel Count (0.00-0.1) % Eos # (Auto) (0-0.5) x10^3/uL Immature Gran # (Auto) (0.00-0.03) x10^3u/L Absolute Lymphs (auto) (1.0-4.6) x10^3/uL Absolute Monos (auto) (0.0-1.3) x10^3/uL Absolute Nucleated RBC (0.00-0.01) x10^3u/L Lymphocytes % (24.0-44.0) % Monocytes % (0.0-12.0) % Eosinophils % (0.00-5.0) % Basophils % (0.0-0.4) % Absolute Granulocytes (1.4-6.9) x10^3/uL Basophils # (0-0.4) x10^3/uL Sodium 136 L (137-145) mmol/L Potassium 4.6 (3.5-5.1) mmol/L Chloride 100 (98-107) mmol/L Carbon Dioxide 28 (22-30) mmol/L Anion Gap 12.8 (5-15) MEQ/L BUN 22 H (7-17) mg/dL Creatinine 0.80 (0.52-1.04) mg/dL Estimated GFR > 60.0 ML/MIN Glucose 120 H (74-106) mg/dL Lactic Acid (0.4-2.0) Calcium 8.7 (8.4-10.2) mg/dL Magnesium 2.0 (1.6-2.3) mg/dL Total Bilirubin 0.60 (0.2-1.3) mg/dL AST 31 (14-36) U/L ALT 21 (0-35) U/L Alkaline Phosphatase 52 (38-126) U/L Troponin I (0.000-0.034) ng/mL NT-Pro-B Natriuret Pep 261 (0-900) pg/mL Serum Total Protein 6.5 (6.3-8.2) g/dL Albumin 3.5 (3.5-5.0) g/dL Urinalys Dipstick Clnc MAIN LAB Urine Color YELLOW (YELLOW) Urine Appearance CLEAR (CLEAR) Urine pH 6.0 (5-6) Ur Specific [place] TI (1.005-1.025) POC Urine Protein Conf 30 (Negative) Urine Ketones TRACE (NEGATIVE) Urine Nitrite NEGATIVE (NEGATIVE) Urine Bilirubin SMALL (NEGATIVE) Urine Urobilinogen 0.2 (0-1) mg/dL Urine Leukocytes NEGATIVE (NEGATIVE) Urine WBC (Auto) 3-5 (0-5) /HPF Urine RBC (Auto) NONE (0-2) /HPF U Epithel Cells (Auto) RARE (FEW) /HPF Urine Bacteria (Auto) RARE (NEGATIVE) /HPF Urine RBC TRACE-INTACT (0-5) Timmy/ul Urine Mucus (Auto) SLIGHT (NEGATIVE) /HPF Ur Culture Indicated? NO Urine Glucose NEGATIVE (NEGATIVE) mg/dL Influenza Type A Ag (NEGATIVE) Influenza Type B Ag (NEGATIVE) RSV (PCR) (Negative) SARS-CoV-2 (PCR) (NEGATIVE) 01/11/22 01/11/22 Range/Units 13:41 13:33 WBC 4.1 (4.0-10.5) x10^3/uL RBC 4.01 L (4.1-5.4) x10^6/uL Hgb 13.0 (12.0-16.0) g/dL Hct 39.7 (35-47) % MCV 99.0 (78-100) fL MCH 32.4 H (26-32) pg MCHC 32.7 (32-36) g/dL RDW 13.1 (11.5-14.0) % Plt Count 161 (150-450) x10^3/uL MPV 10.4 (7.5-11.0) fL Gran % 59.9 (36.0-66.0) % Immature Gran % (Auto) 1.2 H (0.00-0.4) % Nucleat RBC Rel Count 0.0 (0.00-0.1) % Eos # (Auto) 0.05 (0-0.5) x10^3/uL Immature Gran # (Auto) 0.05 H (0.00-0.03) x10^3u/L Absolute Lymphs (auto) 0.86 L (1.0-4.6) x10^3/uL Absolute Monos (auto) 0.65 (0.0-1.3) x10^3/uL Absolute Nucleated RBC 0.00 (0.00-0.01) x10^3u/L Lymphocytes % 21.2 L (24.0-44.0) % Monocytes % 16.0 H (0.0-12.0) % Eosinophils % 1.2 (0.00-5.0) % Basophils % 0.5 (0.0-0.4) % Absolute Granulocytes 2.42 (1.4-6.9) x10^3/uL Basophils # 0.02 (0-0.4) x10^3/uL Sodium (137-145) mmol/L Potassium (3.5-5.1) mmol/L Chloride (98-107) mmol/L Carbon Dioxide (22-30) mmol/L Anion Gap (5-15) MEQ/L BUN (7-17) mg/dL Creatinine (0.52-1.04) mg/dL Estimated GFR ML/MIN Glucose (74-106) mg/dL Lactic Acid 1.3 (0.4-2.0) Calcium (8.4-10.2) mg/dL Magnesium (1.6-2.3) mg/dL Total Bilirubin (0.2-1.3) mg/dL AST (14-36) U/L ALT (0-35) U/L Alkaline Phosphatase (38-126) U/L Troponin I (0.000-0.034) ng/mL NT-Pro-B Natriuret Pep (0-900) pg/mL Serum Total Protein (6.3-8.2) g/dL Albumin (3.5-5.0) g/dL Urinalys Dipstick Clnc Urine Color (YELLOW) Urine Appearance (CLEAR) Urine pH (5-6) Ur Specific [place] (1.005-1.025) POC Urine Protein Conf (Negative) Urine Ketones (NEGATIVE) Urine Nitrite (NEGATIVE) Urine Bilirubin (NEGATIVE) Urine Urobilinogen (0-1) mg/dL Urine Leukocytes (NEGATIVE) Urine WBC (Auto) (0-5) /HPF Urine RBC (Auto) (0-2) /HPF U Epithel Cells (Auto) (FEW) /HPF Urine Bacteria (Auto) (NEGATIVE) /HPF Urine RBC (0-5) Timmy/ul Urine Mucus (Auto) (NEGATIVE) /HPF Ur Culture Indicated? Urine Glucose (NEGATIVE) mg/dL Influenza Type A Ag (NEGATIVE) Influenza Type B Ag (NEGATIVE) RSV (PCR) (Negative) SARS-CoV-2 (PCR) (NEGATIVE) - Progress Progress: improved, pain not gone completely, re-examined Progress Note: 01/11/22 16:21 71 years old is evaluated for generalized weakness, difficulty ambulation with a shingle rash on the left lower quadrant/groin area. Given symptomatic treatment for pain, reevaluation feeling better but pain is not completely resolved. Grossly unremarkable work-up. Patient is having difficulty ambulation. She started on antiviral. I believe patient needs analgesia and I doubt if I give her pain medication at home with her difficult ambulation can fall and have other injuries. Discussed with Dr. Honeycutt and patient is being admitted Discussed with Dr.: Jeffrey Will see patient in: hospital (observation) Counseled pt/family regarding: lab results, diagnosis, rad results - Departure Departure Disposition: Observation Clinical Impression: General weakness Zoster Qualifiers: Herpes zoster complications: unspecified herpes zoster complication Qualified Code(s): B02.8 - Zoster with other complications Condition: Stable Critical Care Time: No
--- NOTE | 2022-01-11 13:57 | XRAY ---
Indication: Weakness. Comparison: August 13, 2021. Portable apical lordotic chest unchanged again demonstrating left mid to lower lung subsegmental atelectasis/scarring, tiny bilateral calcified granulomas, and chronic right hemidiaphragm elevation. Remaining heart and lungs unremarkable. Bony thorax intact again with osteopenia, degenerative changes, and lower cervical fusion hardware.
[2022-01-11 14:23] LABS: Absolute Neutrophil Ct (ANC) 2.42 x10^3/uL (1.4-6.9); Basophil (Absolute #) 0.02 x10^3/uL (0-0.4); Eosinophil % 1.2 % (0.00-5.0); Eosinophil (Absolute #) 0.05 x10^3/uL (0-0.5); Hematocrit 39.7 % (35-47); Lymphocyte (Absolute #) 0.86 x10^3/uL (1.0-4.6); Lymphocytes % 21.2 % (24.0-44.0); Mean Corpuscular Hemoglobin 32.4 pg (26-32); Mean Corpuscular Hgb Concent. 32.7 g/dL (32-36); Mean Platelet Volume 10.4 fL (7.5-11.0); Monocyte (Absolute #) 0.65 x10^3/uL (0.0-1.3); Neutrophil % 59.9 % (36.0-66.0); Platelet Count 161 x10^3/uL (150-450); Red Blood Count 4.01 x10^6/uL (4.1-5.4); Red Cell Distribution Width 13.1 % (11.5-14.0); White Blood Count 4.1 x10^3/uL (4.0-10.5)
[2022-01-11 15:06] LABS: ALBUMIN 3.5 g/dL (3.5-5.0); ALKALINE PHOSPHATASE 52 U/L (38-126); ANION GAP 12.8 MEQ/L (5-15); BLOOD UREA NITROGEN 22 mg/dL (7-17); CHLORIDE 100 mmol/L (98-107); Calcium 8.7 mg/dL (8.4-10.2); Carbon Dioxide 28 mmol/L (22-30); EST GLOMERULAR FILTRATION RATE > 60.0 ML/MIN; Glucose 120 mg/dL (74-106); Potassium 4.6 mmol/L (3.5-5.1); SGOT/AST 31 U/L (14-36); SGPT/ALT 21 U/L (0-35); SODIUM 136 mmol/L (137-145); Total Protein 6.5 g/dL (6.3-8.2)
[2022-01-11 15:22] LABS: Bacteria RARE /HPF (NEGATIVE); Epithelial Cells RARE /HPF (FEW); Mucus SLIGHT /HPF (NEGATIVE)
[2022-01-11 15:23] LABS: Appearance CLEAR (CLEAR); Bilirubin SMALL (NEGATIVE); Glucose NEGATIVE (NEGATIVE); Ketones TRACE (NEGATIVE); RBC TRACE-INTACT Ery/ul (0-5); Specific Gravity TI (1.005-1.025)
[2022-01-11 15:24] LABS: Nitrite NEGATIVE (NEGATIVE); Protein,Urine Dip 30 (Negative); Urine Cultured Indicated? NO; Urobilinogen 0.2 mg/dL (0-1)
[2022-01-11 15:25] LABS: Dipstick done @ ? MAIN LAB
[2022-01-11] MEDS ORDERED: ACYCLOVIR PO STA (16:20)
--- NOTE | 2022-01-11 16:30 | XRAY ---
Indication: Left hip pain. Comparison: None AP pelvis and 2 view left hip demonstrates osteopenia, small bilateral superior acetabular spurring, and mild degenerative changes of visualized lower lumbar spine. No other bony, articular, or soft tissue abnormalities.
[2022-01-11] MEDS ORDERED: ACYCLOVIR ONE ×2 (16:39→19:49)
[2022-01-11 16:51] LABS: INFLUENZA A NEGATIVE (NEGATIVE); INFLUENZA B NEGATIVE (NEGATIVE); RESPIRATORY SYNCTIAL VIRUS NEGATIVE (Negative); SARS-CoV-2 Xpert Express NEGATIVE (NEGATIVE)
[2022-01-11] MEDS ORDERED: Zofran 4 MG/2 ML VIAL IV PRN (17:41)
[2022-01-11] MEDS ORDERED: MORPHINE SULFATE 2 MG INJ IV PRN (17:41)
[2022-01-11] MEDS ORDERED: PATIENT OWN MEDICATION IH PRN (18:52)
[2022-01-11] MEDS: ACYCLOVIR PO SCH ×2 (19:50→22:03)
[2022-01-11] MEDS: OXYCODONE-ACETAMINOPHEN 10-325 PO PRN (19:57)
[2022-01-11] MEDS ORDERED: solu-MEDROL ONE (21:51)
[2022-01-11] MEDS ORDERED: Sterile H2O 10 ml IJ ONE (21:52)
[2022-01-11] MEDS ORDERED: Protonix 40MG Tablet PO SCH (22:00)
[2022-01-11] MEDS: Dilantin 100 MG PO SCH (22:00)
[2022-01-11] MEDS: Desyrel 150 MG PO SCH (22:00)
[2022-01-11] MEDS: Requip 0.5 MG PO SCH (22:01)
[2022-01-11] MEDS: ZOFRAN ODT 4 MG PO SCH (22:01)
[2022-01-11] MEDS: solu-MEDROL 80 MG, Sterile H2O 10 ml 2 ML IV SCH ×2 (22:02)
[2022-01-11] MEDS: MORPHINE SULFATE 2 MG INJ IV PRN (22:03)
[2022-01-12] MEDS: MORPHINE SULFATE 2 MG INJ IV PRN ×3 (02:09→10:53)
[2022-01-12 05:20] LABS: Hematocrit 37.8 % (35-47); Hemoglobin 12.4 g/dL (12.0-16.0); Mean Corpuscular Hemoglobin 32.8 pg (26-32); Mean Corpuscular Hgb Concent. 32.8 g/dL (32-36); Mean Platelet Volume 10.2 fL (7.5-11.0); Platelet Count 136 x10^3/uL (150-450); Red Blood Count 3.78 x10^6/uL (4.1-5.4); White Blood Count 3.3 x10^3/uL (4.0-10.5)
[2022-01-12] MEDS ORDERED: solu-MEDROL ONE (05:56)
[2022-01-12 05:59] LABS: ALBUMIN 3.3 g/dL (3.5-5.0); ALKALINE PHOSPHATASE 52 U/L (38-126); ANION GAP 11.9 MEQ/L (5-15); BLOOD UREA NITROGEN 21 mg/dL (7-17); CHLORIDE 101 mmol/L (98-107); Calcium 8.2 mg/dL (8.4-10.2); Carbon Dioxide 27 mmol/L (22-30); Creatinine 1 0.79 mg/dL (0.52-1.04); EST GLOMERULAR FILTRATION RATE > 60.0 ML/MIN; Glucose 123 mg/dL (74-106); Potassium 4.9 mmol/L (3.5-5.1); SGOT/AST 28 U/L (14-36); SGPT/ALT 19 U/L (0-35); SODIUM 136 mmol/L (137-145); Total Protein 6.2 g/dL (6.3-8.2)
[2022-01-12] MEDS: solu-MEDROL 80 MG, Sterile H2O 10 ml 2 ML IV SCH ×6 (06:05→21:57)
[2022-01-12] MEDS: ACYCLOVIR PO SCH ×5 (06:06→22:07)
[2022-01-12 07:57] LABS: BAND 3 % (0.0-2.0); Lymphocytes 31 % (24-44); Monocyte 9 % (0.0-12.0); Platelet Estimate DECREASED (NORMAL); Total Cells Counted 100
[2022-01-12] MEDS: Requip 0.5 MG PO SCH ×3 (09:34→21:50)
[2022-01-12] MEDS: Dilantin 100 MG PO SCH ×2 (09:34→21:50)
[2022-01-12] MEDS: ZOFRAN ODT 4 MG PO SCH ×3 (09:35→21:57)
[2022-01-12] MEDS: Protonix 40MG Tablet PO SCH ×2 (09:35→21:50)
[2022-01-12] MEDS: OXYCODONE-ACETAMINOPHEN 10-325 PO PRN ×2 (09:35→13:40)
[2022-01-12] MEDS ORDERED: PROTONIX 40 MG IV IV SCH (10:00)
[2022-01-12] MEDS: PROVENTIL 2.5 MG/3 ML NEB IH SCH ×3 (10:20→18:08)
[2022-01-12] MEDS: Cyanocobalamin B-12 1000 MCG/ML IM SCH (10:53)
[2022-01-12] MEDS: Nystatin SUSPENSION 60 ML PO SCH ×4 (13:40→21:50)
[2022-01-12] MEDS ORDERED: PHARMACY DOSING REQUEST MC ONE (14:39)
[2022-01-12] MEDS ORDERED: PHARMACY DOSING REQUIRED: MORPHINE PCA IV STA (14:39)
[2022-01-12] MEDS: Morphine PCA 1 MG/ML IV PRN (15:08)
[2022-01-12] MEDS: Sodium Chloride 0.9% 1000 ML 1,000 ML IV SCH (15:12)
[2022-01-12] MEDS: NEURONTIN PO SCH (15:12)
[2022-01-12] MEDS ORDERED: Narcan 0.4 MG/ML IV PRN (15:15)
--- NOTE | 2022-01-12 19:07 | PCM.HP ---
History of Present Illness - Chief Complaint Chief Complaint: Generalized weakness History of Present Illness: is a 71 year old female who lives alone and is suffering from shingles ,large painful rash left hip/trunk ,malaise and decreased appetite. PMHx Morbid Obesity,HTN.HLD,Asthma/COPD-nonsmoker,OA,Chronic back pain on Hydrocodone from Pain Management . Patient is admitted to [facility] for hydration and pain control. - Review of Systems Constitutional: Malaise, Weakness Eyes: No Symptoms Ears, Nose, & Throat: No Symptoms Respiratory: Cough, Wheezing Cardiac: No Symptoms Abdominal/Gastrointestinal: Appetite Changes, Other (no abdominal pain or N/V/D) Genitourinary Symptoms: Incontinence Musculoskeletal: Back Pain (chronic) Skin: Rash Neurological: No Symptoms Medications & Allergies Home Medications: Home Medication List Divalproex Sodium [Depakote] 500 mg PO TID 03/11/20 [History Confirmed 01/11/22] Furosemide 40 mg PO DAILY 03/11/20 [History Confirmed 01/11/22] Omeprazole 40 mg PO BID 03/11/20 [History Confirmed 01/11/22] Phenytoin Sodium Extended [Dilantin] 200 mg PO BID 03/11/20 [History Confirmed 01/11/22] Trazodone HCl 50 mg [Desyrel 50 mg] 150 mg PO HS 03/11/20 [History Confirmed 01/11/22] atenoloL [Atenolol] 25 mg PO DAILY 03/11/20 [History Confirmed 01/11/22] Cholecalciferol (Vitamin D3) [Vitamin D3] 5,000 unit PO DAILY 01/11/22 [History Confirmed 01/11/22] Folic Acid 0 mg PO DAILY 01/11/22 [History Confirmed 01/11/22] Oxycodone HCl/Acetaminophen [Oxycodone-Acetaminophen 5-325] 1 each PO BIDPRN PRN 01/11/22 [History Confirmed 01/11/22] Polyethylene Glycol 3350 17 gm [Miralax Powder 17GM PACKET] 17 gm PO DAILY 01/11/22 [History Confirmed 01/11/22] Potassium Chloride 20 meq PO DAILY 01/11/22 [History Confirmed 01/11/22] Ropinirole HCl 1 mg PO TID 01/11/22 [History Confirmed 01/11/22] ondansetron HCL [Ondansetron HCl] 8 mg PO BID 01/11/22 [History Confirmed 01/11/22] Allergies/Adverse Reactions: Allergies Allergy/AdvReac Type Severity Reaction Status Date / Time aspirin Allergy Nausea Verified 01/11/22 17:49 naproxen Allergy Nausea Verified 01/11/22 17:49 ketorolac [From Toradol] AdvReac Nausea Verified 01/11/22 17:49 - Past Medical History Past Medical History: Yes Neurological History: Epilepsy ENT History: No Pertinent History Cardiac History: Hypertension Respiratory History: Asthma, COPD Endocrine Medical History: No Pertinent History Musculoskelatal History: Arthritis, Osteoporosis GI Medical History: No Pertinent History History: No Pertinent History Pyscho-Social History: No Pertinent History Reproductive Disorders: No Pertinent History Comment: RLS - Female History Are you now?: No - Past Surgical History Past Surgical History: Yes Neuro Surgical History: No Pertinent History Cardiac History: No Pertinent History Respiratory Surgery: No Pertinent History GI Surgical History: Appendectomy Genitourinary Surgical Hx: No Pertinent History Musculskeletal Surgical Hx: No Pertinent History Female Surgical History: Section Other Surgical History: ROTATOR CUFF, SPUR REMOVAL, CARPAL TUNNEL - Social History Smoking Status: Former smoker Exposure to second hand smoke: Yes Alcohol: None Drug Use: none - Physical Exam Vital Signs: Vital Signs - 24 hr Temp Pulse Resp BP Pulse Ox 01/12/22 18:13 77 20 97 01/12/22 16:00 97.6 F 90 14 136/96 95 01/12/22 15:08 96 01/12/22 14:23 88 16 98 01/12/22 11:37 97.8 F 78 17 142/66 93 L 01/12/22 10:39 78 18 92 L 01/12/22 08:20 78 16 97 01/12/22 07:18 96.9 F 76 15 120/56 95 01/12/22 04:04 97.9 F 73 22 121/63 99 01/11/22 23:18 98.4 F 71 20 114/61 95 01/11/22 19:20 97.4 F 72 20 116/53 94 L General Appearance: mild distress (pain from shingles left hip/low abd) Neurologic Exam: alert, oriented x 3, cooperative, corrective therapist II-XII nml as tested, agitation, other (assist of 2 getting up to bathroom due to pain) Respiratory Exam: wheezing (few scattered eew,no dyspnea) Cardiovascular Exam: regular rate/rhythm Gastrointestinal/Abdomen Exam: soft, normal bowel sounds (nontender) Rectal Exam: not done Back Exam: normal inspection Extremity Exam: pedal edema (no calf tenderness), other Skin Exam: rash (vesicular clusters with surrounding skin redness over a large area of LLQ and left lateral hip around left trunk,tender to touch in this are a.) Results - Labs Lab/Micro Results: Lab Results-Last 24 Hours 01/11/22 01/11/22 01/12/22 Range/Units 19:45 22:30 01:25 WBC (4.0-10.5) x10^3/uL RBC (4.1-5.4) x10^6/uL Hgb (12.0-16.0) g/dL Hct (35-47) % MCV (78-100) fL MCH (26-32) pg MCHC (32-36) g/dL RDW (11.5-14.0) % Plt Count (150-450) x10^3/uL MPV (7.5-11.0) fL Segmented Neutrophils (36.0-66.0) % Band Neutrophils (0.0-2.0) % Lymphocytes (Manual) (24-44) % Monocytes (Manual) (0.0-12.0) % Platelet Estimate (NORMAL) RBC Morphology Sodium (137-145) mmol/L Potassium (3.5-5.1) mmol/L Chloride (98-107) mmol/L Carbon Dioxide (22-30) mmol/L Anion Gap (5-15) MEQ/L BUN (7-17) mg/dL Creatinine (0.52-1.04) mg/dL Estimated GFR ML/MIN Glucose (74-106) mg/dL Calcium (8.4-10.2) mg/dL Total Bilirubin (0.2-1.3) mg/dL AST (14-36) U/L ALT (0-35) U/L Alkaline Phosphatase (38-126) U/L Troponin I < 0.012 < 0.012 < 0.012 (0.000-0.034) ng/mL Serum Total Protein (6.3-8.2) g/dL Albumin (3.5-5.0) g/dL 01/12/22 01/12/22 Range/Units 04:10 04:10 WBC 3.3 L (4.0-10.5) x10^3/uL RBC 3.78 L (4.1-5.4) x10^6/uL Hgb 12.4 (12.0-16.0) g/dL Hct 37.8 (35-47) % MCV 100.0 (78-100) fL MCH 32.8 H (26-32) pg MCHC 32.8 (32-36) g/dL RDW 13.0 (11.5-14.0) % Plt Count 136 L (150-450) x10^3/uL MPV 10.2 (7.5-11.0) fL Segmented Neutrophils 57 (36.0-66.0) % Band Neutrophils 3 H (0.0-2.0) % Lymphocytes (Manual) 31 (24-44) % Monocytes (Manual) 9 (0.0-12.0) % Platelet Estimate DECREASED (NORMAL) RBC Morphology NORMAL Sodium 136 L (137-145) mmol/L Potassium 4.9 (3.5-5.1) mmol/L Chloride 101 (98-107) mmol/L Carbon Dioxide 27 (22-30) mmol/L Anion Gap 11.9 (5-15) MEQ/L BUN 21 H (7-17) mg/dL Creatinine 0.79 (0.52-1.04) mg/dL Estimated GFR > 60.0 ML/MIN Glucose 123 H (74-106) mg/dL Calcium 8.2 L (8.4-10.2) mg/dL Total Bilirubin 0.50 (0.2-1.3) mg/dL AST 28 (14-36) U/L ALT 19 (0-35) U/L Alkaline Phosphatase 52 (38-126) U/L Troponin I (0.000-0.034) ng/mL Serum Total Protein 6.2 L (6.3-8.2) g/dL Albumin 3.3 L (3.5-5.0) g/dL - Radiology Impressions Radiology Exams & Impressions: Radiology Procedures Category Date Time Status CHEST 1 VIEW (PORTABLE) Stat Exams 01/11/22 13:48 Completed HIPS BASIA(2V) INCL PEL IF DONE Stat Exams 01/11/22 15:47 Completed - Other Procedures and Tests Respiratory Therapy 01/11/22 18:54 Respiratory Therapy Assessment DAILY 01/12/22 08:20 Oxygen Nasal Cannula 3 lpm Assessment/Plan (1) Zoster Current Visit: Yes Status: Acute Qualifiers: Herpes zoster complications: unspecified herpes zoster complication Qualified Code(s): B02.8 - Zoster with other complications Assessment & Plan: painful localized rash -is on Morphine at 2mg q 4H but will discuss with Pharma cy plan to increase safely. Code(s): B02.9 - ZOSTER WITHOUT COMPLICATIONS (2) General weakness Current Visit: Yes Status: Acute Assessment & Plan: due to viral illness and pain Code(s): R53.1 - WEAKNESS (3) COPD exacerbation Current Visit: No Status: Acute Assessment & Plan: start nebulizer treatments and RT to follow Code(s): J44.1 - CHRONIC OBSTRUCTIVE PULMONARY DISEASE W (ACUTE) EXACERBATION (4) [facility] (current) use of opiate analgesic Current Visit: Yes Status: Chronic Assessment & Plan: for chronic back pain Code(s): Z79.891 - [facility] (CURRENT) USE OF OPIATE ANALGESIC
[2022-01-12] MEDS: Desyrel 150 MG PO SCH (21:53)
[2022-01-13] MEDS: Sodium Chloride 0.9% 1000 ML 1,000 ML IV SCH ×2 (00:23→11:45)
[2022-01-13] MEDS ORDERED: solu-MEDROL ONE (04:05)
[2022-01-13] MEDS: solu-MEDROL 80 MG, Sterile H2O 10 ml 2 ML IV SCH ×2 (06:22)
[2022-01-13 06:40] LABS: Absolute Neutrophil Ct (ANC) 1.64 x10^3/uL (1.4-6.9); Basophil (Absolute #) 0.02 x10^3/uL (0-0.4); Eosinophil % 0.3 % (0.00-5.0); Eosinophil (Absolute #) 0.01 x10^3/uL (0-0.5); Hematocrit 34.6 % (35-47); Hemoglobin 11.4 g/dL (12.0-16.0); Lymphocyte (Absolute #) 1.24 x10^3/uL (1.0-4.6); Lymphocytes % 36.5 % (24.0-44.0); Mean Cell Volume 99.7 fL (78-100); Mean Corpuscular Hemoglobin 32.9 pg (26-32); Mean Corpuscular Hgb Concent. 32.9 g/dL (32-36); Mean Platelet Volume 10.6 fL (7.5-11.0); Monocyte (Absolute #) 0.46 x10^3/uL (0.0-1.3); Monocytes % 13.5 % (0.0-12.0); Neutrophil % 48.2 % (36.0-66.0); Platelet Count 137 x10^3/uL (150-450); Red Blood Count 3.47 x10^6/uL (4.1-5.4); Red Cell Distribution Width 12.7 % (11.5-14.0); White Blood Count 3.4 x10^3/uL (4.0-10.5)
[2022-01-13 06:45] LABS: ALBUMIN 3.2 g/dL (3.5-5.0); ALKALINE PHOSPHATASE 44 U/L (38-126); BLOOD UREA NITROGEN 22 mg/dL (7-17); CHLORIDE 103 mmol/L (98-107); Carbon Dioxide 30 mmol/L (22-30); Creatinine 1 0.65 mg/dL (0.52-1.04); EST GLOMERULAR FILTRATION RATE > 60.0 ML/MIN; Glucose 112 mg/dL (74-106); Potassium 4.5 mmol/L (3.5-5.1); SGOT/AST 21 U/L (14-36); SGPT/ALT 16 U/L (0-35); SODIUM 138 mmol/L (137-145); Total Protein 5.9 g/dL (6.3-8.2)
[2022-01-13] MEDS: ACYCLOVIR PO SCH ×5 (08:27→21:18)
[2022-01-13] MEDS: Morphine PCA 1 MG/ML IV PRN ×2 (08:53→18:30)
[2022-01-13] MEDS: ZOFRAN ODT 4 MG PO SCH ×2 (09:44→21:21)
[2022-01-13] MEDS: Protonix 40MG Tablet PO SCH ×2 (09:44→21:21)
[2022-01-13] MEDS: Requip 0.5 MG PO SCH ×3 (09:45→21:21)
[2022-01-13] MEDS: Dilantin 100 MG PO SCH ×2 (09:45→21:20)
[2022-01-13] MEDS: NEURONTIN PO SCH ×3 (09:47→21:48)
[2022-01-13] MEDS: Nystatin SUSPENSION 60 ML PO SCH ×4 (09:47→21:22)
[2022-01-13] MEDS: Cyanocobalamin B-12 1000 MCG/ML IM SCH (09:48)
[2022-01-13] MEDS ORDERED: solu-MEDROL 80 MG, Sterile H2O 10 ml 2 ML IV SCH ×2 (14:00)
[2022-01-13] MEDS ORDERED: solu-MEDROL 40 MG, Sterile H2O 10 ml 2 ML IV SCH ×2 (14:00)
[2022-01-13] MEDS: solu-MEDROL 40 MG, Sterile H2O 10 ml 1 ML IV SCH ×4 (14:11→21:37)
[2022-01-13 15:33] LABS: Lymphocytes 33 % (24-44); Monocyte 14 % (0.0-12.0); Total Cells Counted 100
[2022-01-13 15:34] LABS: Platelet Estimate DECREASED (NORMAL)
[2022-01-13] MEDS: Desyrel 150 MG PO SCH (21:18)
[2022-01-14] MEDS: Morphine PCA 1 MG/ML IV PRN ×2 (04:37→18:02)
[2022-01-14] MEDS: solu-MEDROL 40 MG, Sterile H2O 10 ml 1 ML IV SCH ×6 (05:52→22:31)
[2022-01-14] MEDS: ACYCLOVIR PO SCH ×5 (05:52→23:06)
[2022-01-14] MEDS: DUONEB 0.5-3 MG/3 ml Neb IH PRN ×2 (07:27→18:52)
[2022-01-14] MEDS: Dilantin 100 MG PO SCH ×2 (10:13→22:30)
[2022-01-14] MEDS: Protonix 40MG Tablet PO SCH ×2 (10:14→22:30)
[2022-01-14] MEDS: NEURONTIN PO SCH ×3 (10:14→22:30)
[2022-01-14] MEDS: Requip 0.5 MG PO SCH ×3 (10:35→22:30)
[2022-01-14] MEDS: ZOFRAN ODT 4 MG PO SCH ×2 (10:36→22:30)
[2022-01-14] MEDS: Cyanocobalamin B-12 1000 MCG/ML IM SCH (10:37)
[2022-01-14] MEDS: Nystatin SUSPENSION 60 ML PO SCH ×4 (10:39→22:31)
[2022-01-14] MEDS: Miralax Powder 17GM PACKET PO SCH (11:01)
[2022-01-14] MEDS: VITAMIN D PO SCH (11:03)
[2022-01-14] MEDS: Tessalon Perles 100 MG PO PRN ×2 (11:13→22:30)
[2022-01-14] MEDS: TENORMIN 50 MG PO SCH (11:13)
[2022-01-14] MEDS: FOLATE 1 MG PO SCH (11:14)
[2022-01-14] MEDS: Lasix 40 MG PO SCH (11:15)
[2022-01-14] MEDS: Klor Con PO SCH (11:15)
[2022-01-14] MEDS: Sodium Chloride 0.9% 1000 ML 1,000 ML IV SCH ×2 (19:42→20:29)
--- NOTE | 2022-01-14 21:20 | XRAY ---
Indication: Cough and short of breath. Comparison: January 11, 2022. PA/lateral chest unchanged again demonstrating left mid lung subsegmental atelectasis/scarring, tiny bilateral calcified granulomas, and chronic right hemidiaphragm elevation. No new/acute findings. Comment: Preliminary interpretation made by [facility]. No critical discrepancy.
[2022-01-14] MEDS: Desyrel 150 MG PO SCH (22:30)
[2022-01-15] MEDS: Morphine PCA 1 MG/ML IV PRN (02:23)
[2022-01-15] MEDS ORDERED: solu-MEDROL ONE (04:34)
[2022-01-15 05:01] LABS: Hematocrit 35.1 % (35-47); Mean Cell Volume 104.8 fL (78-100); Mean Corpuscular Hemoglobin 32.8 pg (26-32); Mean Corpuscular Hgb Concent. 31.3 g/dL (32-36); Mean Platelet Volume 10.6 fL (7.5-11.0); Platelet Count 164 x10^3/uL (150-450); Red Blood Count 3.35 x10^6/uL (4.1-5.4); Red Cell Distribution Width 12.8 % (11.5-14.0); White Blood Count 5.7 x10^3/uL (4.0-10.5)
[2022-01-15 05:29] LABS: ALBUMIN 3.1 g/dL (3.5-5.0); ALKALINE PHOSPHATASE 43 U/L (38-126); ANION GAP 8.7 MEQ/L (5-15); BLOOD UREA NITROGEN 24 mg/dL (7-17); CHLORIDE 103 mmol/L (98-107); Carbon Dioxide 30 mmol/L (22-30); Creatinine 1 0.71 mg/dL (0.52-1.04); EST GLOMERULAR FILTRATION RATE > 60.0 ML/MIN; Glucose 138 mg/dL (74-106); Potassium 5.2 mmol/L (3.5-5.1); SGOT/AST 30 U/L (14-36); SGPT/ALT 22 U/L (0-35); SODIUM 137 mmol/L (137-145); Total Protein 6.2 g/dL (6.3-8.2)
[2022-01-15] MEDS: solu-MEDROL 40 MG, Sterile H2O 10 ml 1 ML IV SCH ×6 (06:07→22:40)
[2022-01-15] MEDS: ACYCLOVIR PO SCH ×5 (06:08→22:44)
[2022-01-15] MEDS ORDERED: Lasix 20 MG/2 ML ONE (08:51)
[2022-01-15] MEDS: OXYCODONE-ACETAMINOPHEN 10-325 PO PRN ×3 (08:53→17:03)
[2022-01-15] MEDS: Dilantin 100 MG PO SCH ×2 (08:54→22:46)
[2022-01-15] MEDS: VITAMIN D PO SCH (08:55)
[2022-01-15] MEDS: Requip 0.5 MG PO SCH ×3 (08:55→22:44)
[2022-01-15] MEDS: FOLATE 1 MG PO SCH (08:55)
[2022-01-15] MEDS: NEURONTIN PO SCH ×3 (08:56→22:47)
[2022-01-15] MEDS: Lasix 40 MG PO SCH (08:56)
[2022-01-15] MEDS: ZOFRAN ODT 4 MG PO SCH ×2 (08:56→22:47)
[2022-01-15] MEDS: Klor Con PO SCH (08:57)
[2022-01-15] MEDS: TENORMIN 50 MG PO SCH (09:00)
[2022-01-15 09:05] LABS: Lymphocytes 42 % (24-44); Total Cells Counted 100
[2022-01-15] MEDS ORDERED: Lasix 20 MG/2 ML IV ONE (09:05)
[2022-01-15] MEDS: DUONEB 0.5-3 MG/3 ml Neb IH PRN (09:44)
[2022-01-15] MEDS ORDERED: CHOLECALCIFEROL 125 MCG PO SCH (10:00)
[2022-01-15] MEDS ORDERED: NON-FORMULARY ITEM (Potassium Chloride [Potassium Chloride] 20 MEQ Tab.Er.Prt) PO SCH (10:00)
[2022-01-15] MEDS ORDERED: NON-FORMULARY ITEM (Atenolol [Atenolol] 25 MG Tablet) PO SCH (10:00)
--- NOTE | 2022-01-15 10:25 | XRAY ---
Indication: Short of breath. Comparison: One day earlier. Portable apical lordotic now demonstrates borderline cardiomegaly obscuring left lung base. Remaining chest unchanged again demonstrating stable left midlung subsegmental atelectasis/scarring, tiny bilateral calcified granulomas, and chronic right hemidiaphragm elevation.
[2022-01-15 10:40] LABS: Appearance CLEAR (CLEAR); Bilirubin NEGATIVE (NEGATIVE); Glucose NEGATIVE (NEGATIVE); Ketones NEGATIVE (NEGATIVE); Nitrite POSITIVE (NEGATIVE); Ph 5.5 (5-6); Protein,Urine Dip NEGATIVE (Negative); RBC NEGATIVE Ery/ul (0-5); Specific Gravity 1.015 (1.005-1.025); Urobilinogen 0.2 mg/dL (0-1)
[2022-01-15] MEDS: Protonix 40MG Tablet PO SCH ×2 (10:40→22:44)
[2022-01-15] MEDS: TYLENOL 325 MG PO PRN (10:40)
[2022-01-15 10:41] LABS: Dipstick done @ ? MAIN LAB
[2022-01-15] MEDS: Miralax Powder 17GM PACKET PO SCH (10:41)
[2022-01-15 10:42] LABS: Epithelial Cells RARE /HPF (FEW); Mucus SLIGHT /HPF (NEGATIVE)
[2022-01-15 10:48] LABS: Urine Cultured Indicated? YES
[2022-01-15] MEDS: Nystatin SUSPENSION 60 ML PO SCH ×4 (11:18→22:43)
[2022-01-15] MEDS: Desyrel 150 MG PO SCH (22:45)
--- NOTE | 2022-01-15 23:49 | PCM.NOTE ---
Date and Time: 01/15/222343 Subjective Assessment: Patient still c/o pain from shigles left hip/low trunk is still on Morphine pain pump. Has been short of breath,wheezing. RT neb Tx has helped but has not had Tx yet this morning. Portable CXR today shows borderline Cardiomegaly. UA positive nitrate. Patient unable to get up to bathroom 2 person heavy assist to get up to bathroom and almost fell so is getting on the bedpan,will start julian. Objective Exam General Appearance: no apparent distress, lethargy (sleeping,awakens to full conversation) Skin Exam: warm, dry, other (shingles rash/vesicles is drying up nicely) Respiratory Exam: diminished breath sounds, wheezing (scattered) Cardiovascular Exam: regular rate/rhythm, edema (pedal) Gastrointestinal/Abdomen Exam: soft (tender suprapubic) OBJECTIVE DATA Vital Signs: Vital Signs - 24 hr Temp Pulse Resp BP BP Pulse Ox 01/15/22 19:55 97.5 F 79 18 121/60 93 L 01/15/22 16:00 97.1 F 81 18 135/81 92 L 01/15/22 11:28 97.9 F 75 16 141/67 92 L 01/15/22 10:23 3 L 01/15/22 09:52 80 18 3 L 01/15/22 09:00 77 171/101 01/15/22 08:00 96.8 F 77 17 171/101 97 01/15/22 07:37 72 16 96 01/15/22 06:23 97 01/15/22 06:02 97 01/15/22 04:00 97.1 F 69 15 148/71 95 01/15/22 02:02 96 01/15/22 00:00 97.1 F 69 15 148/71 95 Pain Assessment - Last Documented Pain Intensity 0 Pain Scale Used 0-10 Pain Scale Intake and Output: Intake & Output 01/13/22 01/14/22 01/15/22 01/16/22 11:59 11:59 11:59 11:59 Intake Total 2285 1540 1542 778 Output Total 053 558 1763 1400 Balance 1985 940 242 -622 Weight 108.2 kg 107.8 kg 111.1 kg Lab Results: Lab Results-Last 24 Hours 06/13/22 06/13/22 06/13/22 Range/Units 04:20 04:20 04:20 WBC 5.7 (4.0-10.5) x10^3/uL RBC 3.35 L (4.1-5.4) x10^6/uL Hgb 11.0 L (12.0-16.0) g/dL Hct 35.1 (35-47) % MCV 104.8 H (78-100) fL MCH 32.8 H (26-32) pg MCHC 31.3 L (32-36) g/dL RDW 12.8 (11.5-14.0) % Plt Count 164 (150-450) x10^3/uL MPV 10.6 (7.5-11.0) fL Segmented Neutrophils 58 (36.0-66.0) % Lymphocytes (Manual) 42 (24-44) % Sodium 137 (137-145) mmol/L Potassium 5.2 H (3.5-5.1) mmol/L Chloride 103 (98-107) mmol/L Carbon Dioxide 30 (22-30) mmol/L Anion Gap 8.7 (5-15) MEQ/L BUN 24 H (7-17) mg/dL Creatinine 0.71 (0.52-1.04) mg/dL Estimated GFR > 60.0 ML/MIN Glucose 138 H (74-106) mg/dL Calcium 8.0 L (8.4-10.2) mg/dL Total Bilirubin 0.30 (0.2-1.3) mg/dL AST 30 (14-36) U/L ALT 22 (0-35) U/L Alkaline Phosphatase 43 (38-126) U/L NT-Pro-B Natriuret Pep 364 (0-900) pg/mL Serum Total Protein 6.2 L (6.3-8.2) g/dL Albumin 3.1 L (3.5-5.0) g/dL Urinalys Dipstick Clnc Urine Color (YELLOW) Urine Appearance (CLEAR) Urine pH (5-6) Ur Specific [place] (1.005-1.025) POC Urine Protein Conf (Negative) Urine Ketones (NEGATIVE) Urine Nitrite (NEGATIVE) Urine Bilirubin (NEGATIVE) Urine Urobilinogen (0-1) mg/dL Urine Leukocytes (NEGATIVE) Urine WBC (Auto) (0-5) /HPF Urine RBC (Auto) (0-2) /HPF U Epithel Cells (Auto) (FEW) /HPF Urine Bacteria (Auto) (NEGATIVE) /HPF Urine RBC (0-5) Timmy/ul Unidentified Crystals (NEGATIVE) /HPF Urine Mucus (Auto) (NEGATIVE) /HPF Ur Culture Indicated? Urine Glucose (NEGATIVE) mg/dL 01/15/22 Range/Units 04:20 WBC (4.0-10.5) x10^3/uL RBC (4.1-5.4) x10^6/uL Hgb (12.0-16.0) g/dL Hct (35-47) % MCV (78-100) fL MCH (26-32) pg MCHC (32-36) g/dL RDW (11.5-14.0) % Plt Count (150-450) x10^3/uL MPV (7.5-11.0) fL Segmented Neutrophils (36.0-66.0) % Lymphocytes (Manual) (24-44) % Sodium (137-145) mmol/L Potassium (3.5-5.1) mmol/L Chloride (98-107) mmol/L Carbon Dioxide (22-30) mmol/L Anion Gap (5-15) MEQ/L BUN (7-17) mg/dL Creatinine (0.52-1.04) mg/dL Estimated GFR ML/MIN Glucose (74-106) mg/dL Calcium (8.4-10.2) mg/dL Total Bilirubin (0.2-1.3) mg/dL AST (14-36) U/L ALT (0-35) U/L Alkaline Phosphatase (38-126) U/L NT-Pro-B Natriuret Pep (0-900) pg/mL Serum Total Protein (6.3-8.2) g/dL Albumin (3.5-5.0) g/dL Urinalys Dipstick Clnc MAIN LAB Urine Color LT.YELLOW (YELLOW) Urine Appearance CLEAR (CLEAR) Urine pH 5.5 (5-6) Ur Specific [place] 1.015 (1.005-1.025) POC Urine Protein Conf NEGATIVE (Negative) Urine Ketones NEGATIVE (NEGATIVE) Urine Nitrite POSITIVE (NEGATIVE) Urine Bilirubin NEGATIVE (NEGATIVE) Urine Urobilinogen 0.2 (0-1) mg/dL Urine Leukocytes NEGATIVE (NEGATIVE) Urine WBC (Auto) NONE (0-5) /HPF Urine RBC (Auto) NONE (0-2) /HPF U Epithel Cells (Auto) RARE (FEW) /HPF Urine Bacteria (Auto) NONE (NEGATIVE) /HPF Urine RBC NEGATIVE (0-5) Timmy/ul Unidentified Crystals 2-5 (NEGATIVE) /HPF Urine Mucus (Auto) SLIGHT (NEGATIVE) /HPF Ur Culture Indicated? YES Urine Glucose NEGATIVE (NEGATIVE) mg/dL Radiology Exams: Radiology Procedures Category Date Time Status CHEST 1 VIEW (PORTABLE) Urgent Exams 01/15/22 09:18 Completed CHEST 2 VIEWS (PA AND LAT) Routine Exams 01/14/22 12:01 Completed Multi-Disciplinary Progress Notes: Multi-Disciplinary Progress Notes 01/15/22 14:04 Case Management Note by Yvette White S/W PATIENT REGARDING PLANS FOR DC SHE WAS TOO WEAK TO AMBULATE THIS WEEKEND AND REQUIRED THE BED VALLEJO. PATIENT AGREEABLE TO SHORT TERM REHAB AT TIME OF DC. SHE WOULD LIKE TO GO TO [facility] [place]. WILL FAX REFERRAL AFTER PT EVAL IS COMPLETE Initialized on 01/15/22 14:04 - END OF NOTE Assessment/Plan (1) Zoster Current Visit: Yes Status: Acute Qualifiers: Herpes zoster complications: unspecified herpes zoster complication Qualified Code(s): B02.8 - Zoster with other complications Assessment & Plan: rash vesicles are drying up,still having pain but pain pump discontinued and oral Rx Percocet started. Code(s): B02.9 - ZOSTER WITHOUT COMPLICATIONS (2) General weakness Current Visit: Yes Status: Acute Assessment & Plan: difficulty ambulating without assistance - qualify for Rehab in progress Code(s): R53.1 - WEAKNESS (3) COPD exacerbation Current Visit: No Status: Acute Assessment & Plan: neb tx helping Code(s): J44.1 - CHRONIC OBSTRUCTIVE PULMONARY DISEASE W (ACUTE) EXACERBATION (4) long-term (current) use of opiate analgesic Current Visit: Yes Status: Chronic Code(s): Z79.891 - [facility] (CURRENT) USE OF OPIATE ANALGESIC
[2022-01-16] MEDS: Sodium Chloride 0.9% 1000 ML 1,000 ML IV SCH ×3 (01:29→05:49)
[2022-01-16] MEDS: solu-MEDROL 40 MG, Sterile H2O 10 ml 1 ML IV SCH ×6 (05:48→22:49)
[2022-01-16] MEDS: ACYCLOVIR PO SCH ×5 (05:49→22:48)
[2022-01-16] MEDS: OXYCODONE-ACETAMINOPHEN 10-325 PO PRN (09:08)
[2022-01-16] MEDS: VITAMIN D PO SCH (09:28)
[2022-01-16] MEDS: Requip 0.5 MG PO SCH ×3 (09:28→22:47)
[2022-01-16] MEDS: Lasix 40 MG PO SCH (09:29)
[2022-01-16] MEDS: FOLATE 1 MG PO SCH (09:29)
[2022-01-16] MEDS: TENORMIN 50 MG PO SCH (09:30)
[2022-01-16] MEDS: Dilantin 100 MG PO SCH ×2 (09:30→22:47)
[2022-01-16] MEDS: NEURONTIN PO SCH ×3 (09:31→22:49)
[2022-01-16] MEDS: Protonix 40MG Tablet PO SCH ×2 (09:31→22:48)
[2022-01-16] MEDS: Nystatin SUSPENSION 60 ML PO SCH ×4 (09:32→22:46)
[2022-01-16] MEDS: ZOFRAN ODT 4 MG PO SCH ×2 (09:32→22:47)
[2022-01-16] MEDS: Miralax Powder 17GM PACKET PO SCH (09:33)
[2022-01-16] MEDS: ROCEPHIN 1 Gm-D5w 50 ml Bag** 1 G/50 ML IVPB IV SCH (09:40)
--- NOTE | 2022-01-16 10:00 | PCM.NOTE ---
Date and Time: 01/16/22957 Subjective Assessment: Patient diuresed well after IV lasix and wheezing has improved. Patient states eliel appreciated so she can rest better . Is agreeable to Rehab ,unable to get out of bed and walk without help. I came back to reevaluate patient as she had fallen forewards off the bedside commode when trying to wipe. She also had started dropping things. I observed patient trying to eat dinner and before she could get the sandwich to her mouth her arm would drop. This was with both arms. Nurse states she noticed this y esterday but it is worse today.Patient states she feels fine ,just hungry. Denies headache or neck or arm pain. Objective Exam General Appearance: no apparent distress (sitting up in bed with dinner tray in front of her.) Neurologic Exam: alert, oriented x 3, cooperative, equipment mechanic II-XII nml as tested, normal mood/affect, motor deficits (strength is normal but when raising hand to mouth armtenses and drops to her lap-bilaterally) Skin Exam: normal color, warm, dry, rash (shingles rash left hip/low abd healing vesicles are drying up), abrasion (left brow,hindu area ,lateral cheek-redness so laceration or edema) Eye Exam: eyes nml inspection Respiratory Exam: diminished breath sounds (bases few eew,much improved) Cardiovascular Exam: regular rate/rhythm Gastrointestinal/Abdomen Exam: soft (nontender) Extremity Exam: normal inspection (skin intact,ankle edema trace) OBJECTIVE DATA Vital Signs: Vital Signs - 24 hr Temp Pulse Resp BP Pulse Ox 01/16/22 07:33 96 01/16/22 07:10 75 18 96 01/16/22 06:59 98 F 104 H 19 149/95 89 L 01/16/22 04:00 97.3 F 74 16 126/66 95 01/15/22 23:51 97.1 F 73 20 153/70 95 01/15/22 19:55 97.5 F 79 18 121/60 93 L 01/15/22 16:00 97.1 F 81 18 135/81 92 L 01/15/22 11:28 97.9 F 75 16 141/67 92 L 01/15/22 10:23 3 L Pain Assessment - Last Documented Pain Intensity 0 Pain Scale Used 0-10 Pain Scale Intake and Output: Intake & Output 01/13/22 01/14/22 01/15/22 01/16/22 11:59 11:59 11:59 11:59 Intake Total 2285 1540 1542 1859 Output Total 005 786 7016 2275 Balance 1985 940 242 -416 Weight 108.2 kg 107.8 kg 111.1 kg 112 kg Lab Results: Lab Results-Last 24 Hours 01/15/22 01/15/22 Range/Units 04:20 04:20 NT-Pro-B Natriuret Pep 364 (0-900) pg/mL Urinalys Dipstick Clnc MAIN LAB Urine Color LT.YELLOW (YELLOW) Urine Appearance CLEAR (CLEAR) Urine pH 5.5 (5-6) Ur Specific [place] 1.015 (1.005-1.025) POC Urine Protein Conf NEGATIVE (Negative) Urine Ketones NEGATIVE (NEGATIVE) Urine Nitrite POSITIVE (NEGATIVE) Urine Bilirubin NEGATIVE (NEGATIVE) Urine Urobilinogen 0.2 (0-1) mg/dL Urine Leukocytes NEGATIVE (NEGATIVE) Urine WBC (Auto) NONE (0-5) /HPF Urine RBC (Auto) NONE (0-2) /HPF U Epithel Cells (Auto) RARE (FEW) /HPF Urine Bacteria (Auto) NONE (NEGATIVE) /HPF Urine RBC NEGATIVE (0-5) Timmy/ul Unidentified Crystals 2-5 (NEGATIVE) /HPF Urine Mucus (Auto) SLIGHT (NEGATIVE) /HPF Ur Culture Indicated? YES Urine Glucose NEGATIVE (NEGATIVE) mg/dL Radiology Exams: Radiology Procedures Category Date Time Status CHEST 1 VIEW (PORTABLE) Urgent Exams 01/15/22 09:18 Completed CHEST 2 VIEWS (PA AND LAT) Routine Exams 01/14/22 12:01 Completed Multi-Disciplinary Progress Notes: Multi-Disciplinary Progress Notes 01/16/22 08:31 Case Management Note by Yvette White REFERRAL FAXED TO [facility] AT THIS TIME Initialized on 01/16/22 08:31 - END OF NOTE 01/15/22 14:04 Case Management Note by Yvette White S/W PATIENT REGARDING PLANS FOR DC SHE WAS TOO WEAK TO AMBULATE THIS WEEKEND AND REQUIRED THE BED VALLEJO. PATIENT AGREEABLE TO SHORT TERM REHAB AT TIME OF DC. SHE WOULD LIKE TO GO TO [facility]. WILL FAX REFERRAL AFTER PT EVAL IS COMPLETE Initialized on 01/15/22 14:04 - END OF NOTE Assessment/Plan (1) Zoster Current Visit: Yes Status: Acute Qualifiers: Herpes zoster complications: unspecified herpes zoster complication Qualified Code(s): B02.8 - Zoster with other complications Code(s): B02.9 - ZOSTER WITHOUT COMPLICATIONS (2) General weakness Current Visit: Yes Status: Acute Assessment & Plan: affecting gait,ADL Code(s): R53.1 - WEAKNESS (3) COPD exacerbation Current Visit: No Status: Acute Code(s): J44.1 - CHRONIC OBSTRUCTIVE PULMONARY DISEASE W (ACUTE) EXACERBATION (4) [facility] (current) use of opiate analgesic Current Visit: Yes Status: Chronic Code(s): Z79.891 - [facility] (CURRENT) USE OF OPIATE ANALGESIC (5) Fall Current Visit: Yes Status: Acute Qualifiers: Encounter type: initial encounter Qualified Code(s): W19.XXXA - Unspecified fall, initial encounter Assessment & Plan: fell foreward off bedside commode,contused left brow/cheek Code(s): W19.XXXA - UNSPECIFIED FALL, INITIAL ENCOUNTER (6) Abrasion, face w/o infection Current Visit: Yes Status: Acute Assessment & Plan: left face Code(s): S00.81XA - ABRASION OF OTHER PART OF HEAD, INITIAL ENCOUNTER (7) Clonus Current Visit: Yes Status: Acute Assessment & Plan: Teleneuro consult was ordered and Neurologist phoned me with evaluation and plan. See printed consult and orders. Acyclovir was discontinued. Xray C-spine, CT brain then MRI brain and Cspine were ordered. Code(s): R25.8 - OTHER ABNORMAL INVOLUNTARY MOVEMENTS (8) Fusion of spine, cervical region Current Visit: Yes Status: Resolved Assessment & Plan: xray/scan showed not affected by fall Code(s): M43.22 - FUSION OF SPINE, CERVICAL REGION
[2022-01-16] MEDS ORDERED: Dulcolax 10 MG SUPP PR PRN (10:34)
[2022-01-16 10:37] LABS: Basophil (Absolute #) 0.06 x10^3/uL (0-0.4); Eosinophil % 1.3 % (0.00-5.0); Eosinophil (Absolute #) 0.12 x10^3/uL (0-0.5); Hematocrit 39.1 % (35-47); Hemoglobin 12.2 g/dL (12.0-16.0); Lymphocyte (Absolute #) 2.77 x10^3/uL (1.0-4.6); Lymphocytes % 29.4 % (24.0-44.0); Mean Cell Volume 105.7 fL (78-100); Mean Corpuscular Hgb Concent. 31.2 g/dL (32-36); Monocyte (Absolute #) 0.73 x10^3/uL (0.0-1.3); Monocytes % 7.7 % (0.0-12.0); Neutrophil % 57.3 % (36.0-66.0); Platelet Count 206 x10^3/uL (150-450); White Blood Count 9.4 x10^3/uL (4.0-10.5)
[2022-01-16] MEDS ORDERED: DUONEB 0.5-3 MG/3 ml Neb IH ONE (10:48)
[2022-01-16] MEDS: DUONEB 0.5-3 MG/3 ml Neb IH SCH ×3 (10:49→19:43)
[2022-01-16 11:04] LABS: ALBUMIN 3.4 g/dL (3.5-5.0); ALKALINE PHOSPHATASE 52 U/L (38-126); ANION GAP 10.6 MEQ/L (5-15); BLOOD UREA NITROGEN 21 mg/dL (7-17); CHLORIDE 98 mmol/L (98-107); Calcium 8.5 mg/dL (8.4-10.2); Carbon Dioxide 35 mmol/L (22-30); Creatinine 1 0.69 mg/dL (0.52-1.04); EST GLOMERULAR FILTRATION RATE > 60.0 ML/MIN; Glucose 131 mg/dL (74-106); Potassium 4.3 mmol/L (3.5-5.1); SGOT/AST 33 U/L (14-36); SGPT/ALT 30 U/L (0-35); SODIUM 139 mmol/L (137-145); Total Protein 6.7 g/dL (6.3-8.2)
[2022-01-16] MEDS ORDERED: DUONEB 0.5-3 MG/3 ml Neb IH SCH (13:00)
[2022-01-16] MEDS: Desyrel 150 MG PO SCH (22:47)
[2022-01-17] MEDS: solu-MEDROL 40 MG, Sterile H2O 10 ml 1 ML IV SCH ×6 (05:48→22:23)
[2022-01-17] MEDS: DUONEB 0.5-3 MG/3 ml Neb IH SCH ×4 (06:57→18:45)
--- NOTE | 2022-01-17 08:33 | XRAY ---
Indication: Left supraorbital bruising and swelling following fall. Weakness. Multiple contiguous axial images obtained through the head without contrast. Comparison: None Age-appropriate global atrophy and mild periventricular degenerative micro-ischemia bilaterally. No acute intracranial hemorrhage, abnormal extra-axial fluid collection, or mass effect. Fourth ventricle is midline without hydrocephalus. Small left supraorbital scalp soft tissue swelling/hematoma. Bony calvarium intact. Visualized paranasal sinuses and mastoid air cells are clear. Impression: Nonacute senile brain. Small left supraorbital scalp soft tissue swelling/hematoma.
--- NOTE | 2022-01-17 08:39 | XRAY ---
Indication: Left supraorbital bruising and swelling following fall. Weakness. Multiple contiguous axial images obtained through the cervical spine. Sagittal and coronal reformatted images obtained. Comparison: None Several images slightly degraded by motion artifact. Osseous structures demineralized. Axial images negative for acute fracture, suspicious bony lesions, or spinal canal stenosis. Minimal/mild multilevel degenerative endplate spurring and bilateral degenerative facet hypertrophy. Additional moderate/advanced atlantoaxial degenerative changes. Previous C4-C5 fusion with intact anterior plate/screws. Sagittal and coronal reformatted images demonstrate lordotic straightening, positional versus paraspinal spasm. Minimal C5-C7 disc space narrowing. No acute compression fracture, subluxation, or jumped facet. Normal appearing craniocervical junction. Visualized noncontrasted soft tissues demonstrates mild bilateral carotid calcifications. Impression: 1. Minimal motion artifact. 2. Cervical lordotic straightening, positional versus paraspinal spasm. 3. Negative acute fracture/subluxation. 4. Osteopenia, multilevel degenerative changes, and C4-C5 fusion surgery.
[2022-01-17] MEDS: FOLATE 1 MG PO SCH (09:54)
[2022-01-17] MEDS: Requip 0.5 MG PO SCH ×3 (09:56→22:24)
[2022-01-17] MEDS: VITAMIN D PO SCH (09:56)
[2022-01-17] MEDS: Dilantin 100 MG PO SCH ×2 (09:57→22:25)
[2022-01-17] MEDS: Protonix 40MG Tablet PO SCH ×2 (09:58→22:25)
[2022-01-17] MEDS: TENORMIN 50 MG PO SCH (09:58)
[2022-01-17] MEDS: ZOFRAN ODT 4 MG PO SCH ×2 (09:58→22:25)
[2022-01-17] MEDS: Lasix 40 MG PO SCH (09:58)
[2022-01-17] MEDS: NEURONTIN PO SCH ×3 (10:20→22:25)
--- NOTE | 2022-01-17 12:18 | XRAY ---
Indication: Multiple falls. Balance instability. Sagittal, coronal, and axial MRI brain performed without contrast using T1 and T2-weighted sequences. Comparison: None Age-appropriate global atrophy and mild/moderate periventricular degenerative micro-ischemia signal bilaterally. No acute intracranial hemorrhage, abnormal extra-axial fluid collection, or mass effect. Diffusion images are negative for restricted signal. Fourth ventricle is midline without hydrocephalus. 7/8 cranial nerve complex bilaterally symmetric. Normal flow-void signal within the major intracerebral circulation. Normal appearing craniocervical junction and sella turcica. 1.1 cm left maxillary sinus polyp/retention cyst. Remaining paranasal sinuses are clear. Impression: 1. Atrophy and degenerative micro-ischemia within normal limits for patient's age. 2. No acute intracranial abnormalities or evidence for evolving large vessel territorial stroke. 3. Incidental small left maxillary sinus polyp/retention cyst.
--- NOTE | 2022-01-17 12:22 | XRAY ---
Indication: Multiple falls. Balance instability. Axial and coronal MRI cervical spine performed without contrast using T1 and T2-weighted sequences. Comparison: None Sagittal images demonstrates lordotic straightening, positional versus paraspinal spasm. C4-C5 anterior fusion with ferromagnetic artifact from hardware. Multilevel degenerative disc desiccation signal with minimal C5-C6 disc space narrowing. No acute fracture, suspicious bony lesions, or abnormal bone marrow signal. Spinal cord is normal in course and caliber without signal abnormality. Normal appearing craniocervical junction. Axial images degraded by motion artifact. C2-C4 levels negative for disc herniation, spinal canal, or foraminal stenosis. At C4-C5 level, there is bilateral foraminal stenosis due to uncovertebral spurring. No disc herniation or canal stenosis. At C5-C6 level, there is right foraminal stenosis due to uncovertebral spurring. No disc herniation or spinal canal stenosis. Remaining C6-T1 levels negative for disc herniation, spinal canal, or foraminal stenosis. Impression: 1. Motion artifact and ferromagnetic artifact from C4-C5 fusion hardware. 2. C4-C6 foraminal stenosis due to degenerative uncovertebral spurring. 3. Remaining MRI cervical spine is negative for disc herniation or spinal canal stenosis.
[2022-01-17] MEDS: Nystatin SUSPENSION 60 ML PO SCH ×4 (12:38→22:24)
[2022-01-17] MEDS: Miralax Powder 17GM PACKET PO SCH (13:45)
[2022-01-17] MEDS: ROCEPHIN 1 Gm-D5w 50 ml Bag** 1 G/50 ML IVPB IV SCH (13:45)
[2022-01-17] MEDS: Desyrel 150 MG PO SCH (22:25)
[2022-01-18 05:12] LABS: Hematocrit 33.8 % (35-47); Hemoglobin 10.8 g/dL (12.0-16.0); Mean Cell Volume 103.4 fL (78-100); Mean Platelet Volume 11.3 fL (7.5-11.0); Platelet Count 145 x10^3/uL (150-450); Red Blood Count 3.27 x10^6/uL (4.1-5.4); Red Cell Distribution Width 13.2 % (11.5-14.0)
[2022-01-18] MEDS: TYLENOL 325 MG PO PRN (05:16)
[2022-01-18] MEDS: solu-MEDROL 40 MG, Sterile H2O 10 ml 1 ML IV SCH ×2 (05:17)
[2022-01-18 05:44] LABS: ALBUMIN 2.9 g/dL (3.5-5.0); ALKALINE PHOSPHATASE 39 U/L (38-126); ANION GAP 12.6 MEQ/L (5-15); BLOOD UREA NITROGEN 23 mg/dL (7-17); CHLORIDE 94 mmol/L (98-107); Carbon Dioxide 36 mmol/L (22-30); Creatinine 1 0.58 mg/dL (0.52-1.04); EST GLOMERULAR FILTRATION RATE > 60.0 ML/MIN; Glucose 172 mg/dL (74-106); Potassium 4.9 mmol/L (3.5-5.1); SGOT/AST 28 U/L (14-36); SGPT/ALT 22 U/L (0-35); SODIUM 138 mmol/L (137-145); Total Protein 6.2 g/dL (6.3-8.2)
[2022-01-18] MEDS: DUONEB 0.5-3 MG/3 ml Neb IH SCH ×4 (07:23→19:17)
[2022-01-18] MEDS: NEURONTIN PO SCH ×3 (10:43→20:29)
[2022-01-18] MEDS: DELTASONE 20 MG PO SCH ×3 (10:43→21:05)
[2022-01-18] MEDS: VITAMIN D PO SCH (10:43)
[2022-01-18] MEDS: TENORMIN 50 MG PO SCH (10:44)
[2022-01-18] MEDS: Lasix 40 MG PO SCH (10:45)
[2022-01-18] MEDS: Requip 0.5 MG PO SCH ×3 (10:45→21:05)
[2022-01-18] MEDS: Nystatin SUSPENSION 60 ML PO SCH ×4 (10:45→21:05)
[2022-01-18] MEDS: ZOFRAN ODT 4 MG PO SCH ×3 (10:45→21:06)
[2022-01-18] MEDS: Miralax Powder 17GM PACKET PO SCH (10:45)
[2022-01-18] MEDS: Protonix 40MG Tablet PO SCH ×2 (10:45→21:05)
[2022-01-18] MEDS: Dilantin 100 MG PO SCH ×2 (10:45→21:05)
[2022-01-18] MEDS: FOLATE 1 MG PO SCH (10:45)
[2022-01-18] MEDS: ROCEPHIN 1 Gm-D5w 50 ml Bag** 1 G/50 ML IVPB IV SCH ×2 (10:47→14:36)
[2022-01-18] MEDS: KEFLEX 500 MG PO SCH ×2 (16:22→21:05)
[2022-01-18] MEDS: Sodium Chloride 0.9% 1000 ML 1,000 ML IV SCH (19:40)
[2022-01-18] MEDS: Desyrel 150 MG PO SCH (21:05)
[2022-01-19] MEDS: DUONEB 0.5-3 MG/3 ml Neb IH SCH ×4 (06:36→18:54)
[2022-01-19] MEDS: DELTASONE 20 MG PO SCH ×3 (09:07→21:09)
[2022-01-19] MEDS: Nystatin SUSPENSION 60 ML PO SCH ×4 (09:07→21:09)
[2022-01-19] MEDS: Dilantin 100 MG PO SCH ×2 (09:08→21:10)
[2022-01-19] MEDS: Requip 0.5 MG PO SCH ×3 (09:09→21:09)
[2022-01-19] MEDS: KEFLEX 500 MG PO SCH ×4 (09:09→21:10)
[2022-01-19] MEDS: Protonix 40MG Tablet PO SCH ×2 (09:09→21:10)
[2022-01-19] MEDS: FOLATE 1 MG PO SCH (09:09)
[2022-01-19] MEDS: VITAMIN D PO SCH (09:09)
[2022-01-19] MEDS: NEURONTIN PO SCH ×3 (09:09→21:11)
[2022-01-19] MEDS: ZOFRAN ODT 4 MG PO SCH ×2 (09:09→21:10)
[2022-01-19] MEDS: TENORMIN 50 MG PO SCH (09:10)
[2022-01-19] MEDS: Lasix 40 MG PO SCH (09:10)
[2022-01-19] MEDS: Miralax Powder 17GM PACKET PO SCH (09:13)
--- NOTE | 2022-01-19 18:33 | PCM.NOTE ---
Date and Time: 01/19/221832 Subjective Assessment: Patient states she is feeling stronger but shortness of breath when up in the room.Is eating well and shingles rash pain almost gone. Objective Exam General Appearance: no apparent distress Neurologic Exam: alert, cooperative, normal mood/affect Skin Exam: normal color, warm, dry Respiratory Exam: diminished breath sounds (basesno rales or ronchi or wheeze) Cardiovascular Exam: regular rate/rhythm Extremity Exam: pedal edema (trace) OBJECTIVE DATA Vital Signs: Vital Signs - 24 hr Temp Pulse Resp BP BP Pulse Ox 01/19/22 17:05 93 L 01/19/22 15:52 97.3 F 80 14 129/70 99 01/19/22 14:23 78 18 97 01/19/22 12:00 97.5 F 80 14 135/69 100 01/19/22 10:55 79 18 95 01/19/22 09:10 58 L 141/67 01/19/22 08:00 97.8 F 81 16 190/79 94 L 01/19/22 06:38 70 20 95 01/19/22 04:00 97.3 F 72 17 179/79 95 01/19/22 00:00 97.1 F 71 12 128/61 96 01/18/22 20:05 96 01/18/22 20:00 98.6 F 85 24 149/68 85 L 01/18/22 19:18 77 20 90 L Pain Assessment - Last Documented Pain Intensity 0 Pain Scale Used 0-10 Pain Scale Intake and Output: Intake & Output 01/17/22 01/18/22 01/19/22 01/20/22 11:59 11:59 11:59 11:59 Intake Total 440 400 440 720 Output Total 4500 1900 3650 1900 Balance -2611 -1500 -3210 -1180 Weight 110 kg 109.5 kg 107.7 kg Multi-Disciplinary Progress Notes: Multi-Disciplinary Progress Notes 01/19/22 17:21 Physical Therapy Note by Jaime(Deanne#[id number])Delphine PT. SEEN BY P.T. BID THIS DATE. OVERALL DOING MUCH BETTER. NO C/O PN TODAY. A.M. RX - STILL HAD NICHOLSON CATH IN PLACE WELL. PT. DETERMINED TO WALK AND GET STRONGER. IN A.M., PT. IN BED UPON P.T. ARRIVAL. PERFROMED SUPINE TO SIT W/ CGA-MIN ASSIST. PT. ON 2L O2. PT. PERFORMED SIT TO STAND W/ CGA-MIN ASSIST. AMBULATED ~ 60' IN ROOM W/ RW AND 2 L O2. O2 SATS 98-100% ON 2L. RX TIME - 940-1000 PM RX- PT. IN BED BUT HAD SAT UP MOST OF THE MORNING. AGREEABLE TO P.T. PERFORMED SUPINE TO SIT W/ CGA. SIT TO STAND CGA. PT. AMBULATED ~ 70' W/ RW, NICHOLSON CATH IN PLACE, ON RA O2 SATS 93-96%. PT. DOES REQUIRE V.C. TO DEEP BREATHE SHE TENDS TO BREATHE THROUGH HER MOUTH. PT. PERFORMED SEATED LE EX'S X 10 REPS. OF LAQS, MARCHES, HEEL SLIDES, ABD SLIDES, AND ANKLE PUMPS. RT AND NSG NOTIFIED THAT PT. WAS IN CHAIR AND ON RA. PT. HAS MADE SIGNIFICANT IMPROVEMENT IN P.T. OVER THE PAST 2 DAYS. PT. STILL WOULD BENEFIT FROM REHAB STAY TO ADDRESS WEAKNESS, FUNCTIONAL DEFICITS, AND DECREASED ACTIVITY TOLERANCE. WILLCONT. P.T. 5X/WK UNTIL D/C. RX TIME - [id number] Initialized on 01/19/22 17:21 - END OF NOTE 01/19/22 14:01 Case Management Note by Bianca Morris CALL TO LIYAH AT [facility]. REPORTS THAT THEY HAVE NOT HEARD ANYTHING BACK YET FROM [facility]. HOPING TO HEAR SOMETHING BACK BEFORE 1700. SHE WILL NOTIFY US WHEN SHE HEARS BACK FROM INSURANCE. Initialized on 01/19/22 14:01 - END OF NOTE 01/19/22 09:02 Case Management Note by Yvette White S/W LIYAH IN [facility] - STILL WAITING ON PRECERT AT THIS TIME Initialized on 01/19/22 09:02 - END OF NOTE 01/19/22 04:42 Respiratory Note by Kaykay Torrez Nurse notified RT of desaturation of 85% on Room Air. Placed back on O2 at that time. 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 Code(s): Z79.891 - [facility] (CURRENT) USE OF OPIATE ANALGESIC (5) Fall Status: Resolved Qualifiers: Encounter type: initial encounter Qualified Code(s): W19.XXXA - Unspecified fall, initial encounter Assessment & Plan: PT to prevent further falls Code(s): W19.XXXA - UNSPECIFIED FALL, INITIAL ENCOUNTER (6) Abrasion, face w/o infection Status: Resolved Code(s): S00.81XA - ABRASION OF OTHER PART OF HEAD, INITIAL ENCOUNTER (7) Clonus Status: Resolved Code(s): R25.8 - OTHER ABNORMAL INVOLUNTARY MOVEMENTS (8) Fusion of spine, cervical region Status: Resolved Code(s): M43.22 - FUSION OF SPINE, CERVICAL REGION
[2022-01-19] MEDS: Desyrel 150 MG PO SCH (21:10)
[2022-01-19] MEDS: Ativan 0.5 MG PO SCH (21:11)
[2022-01-19] MEDS ORDERED: NYSTOP POWDER 15 GM TP SCH (22:00)
[2022-01-20] MEDS: DUONEB 0.5-3 MG/3 ml Neb IH SCH ×4 (06:33→19:17)
[2022-01-20] MEDS: Miralax Powder 17GM PACKET PO SCH (09:55)
[2022-01-20] MEDS: FOLATE 1 MG PO SCH (09:56)
[2022-01-20] MEDS: KEFLEX 500 MG PO SCH ×4 (09:57→21:19)
[2022-01-20] MEDS: VITAMIN D PO SCH (09:57)
[2022-01-20] MEDS: DELTASONE 20 MG PO SCH ×3 (09:57→21:18)
[2022-01-20] MEDS: Protonix 40MG Tablet PO SCH ×2 (09:58→21:19)
[2022-01-20] MEDS: TENORMIN 50 MG PO SCH (09:58)
[2022-01-20] MEDS: NEURONTIN PO SCH ×3 (09:58→21:20)
[2022-01-20] MEDS: Dilantin 100 MG PO SCH ×2 (09:58→21:19)
[2022-01-20] MEDS: Requip 0.5 MG PO SCH ×3 (09:58→21:19)
[2022-01-20] MEDS: Lasix 40 MG PO SCH (09:58)
[2022-01-20] MEDS: NYSTOP POWDER 15 GM TP SCH ×2 (10:00→21:19)
[2022-01-20] MEDS: ZOFRAN ODT 4 MG PO SCH ×2 (10:07→21:20)
[2022-01-20] MEDS: Nystatin SUSPENSION 60 ML PO SCH ×4 (10:08→21:18)
[2022-01-20] MEDS: Desyrel 150 MG PO SCH (21:19)
[2022-01-20] MEDS: Ativan 0.5 MG PO SCH (21:19)
[2022-01-20] MEDS: TYLENOL 325 MG PO PRN (21:22)
--- NOTE | 2022-01-20 23:58 | PCM.NOTE ---
Date and Time: 01/20/22 4995 Subjective Assessment: Patient is up in the chair most of the day and is reading on her phone. No new c/o. Objective Exam General Appearance: no apparent distress Neurologic Exam: alert, oriented x 3, cooperative, normal mood/affect, other (normal movement of extremities-no further clonus) Respiratory Exam: diminished breath sounds (bases), other (no rales or ronchi or wheeze) Cardiovascular Exam: regular rate/rhythm Gastrointestinal/Abdomen Exam: soft (nontender) OBJECTIVE DATA Vital Signs: Vital Signs - 24 hr Temp Pulse Resp BP BP Pulse Ox 01/20/22 23:33 97.6 F 71 20 130/61 95 01/20/22 19:37 97.1 F 73 20 157/60 94 L 01/20/22 19:17 75 18 95 01/20/22 16:00 97.1 F 78 20 134/63 94 L 01/20/22 14:10 76 22 94 L 01/20/22 10:58 97.4 F 77 20 147/77 96 01/20/22 10:52 74 20 96 01/20/22 09:58 74 149/72 01/20/22 07:14 97.3 F 74 20 149/72 95 01/20/22 06:36 79 18 94 L 01/20/22 04:00 97.9 F 64 21 138/69 94 L Pain Assessment - Last Documented Pain Intensity 3 Pain Scale Used [facility] Intake and Output: Intake & Output 01/18/22 01/19/22 01/20/22 01/21/22 11:59 11:59 11:59 11:59 Intake Total 947 035 3961 460 Output Total 1900 2410 1704 575 Balance -1500 -1540 -1145 -115 Weight 109.5 kg 107.7 kg 107.6 kg Multi-Disciplinary Progress Notes: Multi-Disciplinary Progress Notes 01/20/22 22:56 Nutrition Note by Chelsea Hannon F/u Note: Heart healthy diet cont with 07=969% po intake. Labs 01/18= BUN 23, glu 172, alb 2.9, hgb 10.8, hct 33.8, mcv 103.4. adm weight 112kg; current weight 107.6kg - note pt has had negative fluid balance. goal of po intake >=75% met and ongoing. Will con't to monitor and f/u prn. SAMANTHA Souza Initialized on 01/20/22 22:56 - END OF NOTE Assessment/Plan (1) Zoster Status: Resolved Qualifiers: Herpes zoster complications: unspecified herpes zoster complication Qualified Code(s): B02.8 - Zoster with other complications Assessment & Plan: no c/o shingles rash pain Code(s): B02.9 - ZOSTER WITHOUT COMPLICATIONS (2) General weakness Status: Acute Assessment & Plan: almost at baseline Code(s): R53.1 - WEAKNESS (3) COPD exacerbation Status: Resolved Assessment & Plan: still requires O2 Code(s): J44.1 - CHRONIC OBSTRUCTIVE PULMONARY DISEASE W (ACUTE) EXACERBATION (4) Abrasion, face w/o infection Status: Resolved Code(s): S00.81XA - ABRASION OF OTHER PART OF HEAD, INITIAL ENCOUNTER (5) Clonus Status: Resolved Code(s): R25.8 - OTHER ABNORMAL INVOLUNTARY MOVEMENTS (6) Fusion of spine, cervical region Status: Resolved Code(s): M43.22 - FUSION OF SPINE, CERVICAL REGION
[2022-01-21] MEDS: DUONEB 0.5-3 MG/3 ml Neb IH SCH ×4 (07:29→19:57)
[2022-01-21] MEDS: Miralax Powder 17GM PACKET PO SCH (09:02)
[2022-01-21] MEDS: VITAMIN D PO SCH (09:03)
[2022-01-21] MEDS: KEFLEX 500 MG PO SCH ×4 (09:04→21:20)
[2022-01-21] MEDS: Dilantin 100 MG PO SCH ×2 (09:04→21:19)
[2022-01-21] MEDS: NYSTOP POWDER 15 GM TP SCH ×2 (09:04→21:20)
[2022-01-21] MEDS: Lasix 40 MG PO SCH (09:04)
[2022-01-21] MEDS: NEURONTIN PO SCH ×3 (09:04→21:20)
[2022-01-21] MEDS: Protonix 40MG Tablet PO SCH ×2 (09:04→21:21)
[2022-01-21] MEDS: Requip 0.5 MG PO SCH ×3 (09:04→21:21)
[2022-01-21] MEDS: FOLATE 1 MG PO SCH (09:05)
[2022-01-21] MEDS: DELTASONE 20 MG PO SCH ×3 (09:05→21:15)
[2022-01-21] MEDS: TENORMIN 50 MG PO SCH (09:06)
[2022-01-21] MEDS: ZOFRAN ODT 4 MG PO SCH ×2 (09:50→21:21)
[2022-01-21] MEDS: Nystatin SUSPENSION 60 ML PO SCH ×4 (09:50→21:20)
--- NOTE | 2022-01-21 18:02 | PCM.NOTE ---
Date and Time: 01/21/22 1800 Subjective Assessment: Patient states she if feeling stronger but still fatigued,napping and still weak when up walking to bathroom with assistance. Waiting on insurance approval to transfer to Rehab but patient now states she would like to go home and have HH/PT. Her family will set up a sitter for her. Patient has been requiring O2 at 2L/nc. chronic COPD and acute illness. Scattered wheezing and diminished breath sounds have improved but O2 needs remain. Objective Exam General Appearance: no apparent distress, other (O2 @ 2L/NC) Neurologic Exam: alert, oriented x 3, cooperative, normal mood/affect Skin Exam: normal color, warm, dry, rash (shingles vesicles dried and crusted.) Neck Exam: normal inspection Respiratory Exam: diminished breath sounds (bases) Cardiovascular Exam: regular rate/rhythm Gastrointestinal/Abdomen Exam: soft (nontender) OBJECTIVE DATA Vital Signs: Vital Signs - 24 hr Temp Pulse Resp BP BP Pulse Ox 01/21/22 16:00 97.1 F 67 20 136/65 98 01/21/22 15:45 65 16 97 01/21/22 12:00 97.1 F 67 20 136/65 98 01/21/22 11:54 72 18 94 L 01/21/22 09:06 68 145/70 01/21/22 07:49 97.5 F 68 19 145/70 96 01/21/22 07:32 68 18 96 01/21/22 04:00 97.9 F 81 22 137/78 96 01/20/22 23:33 97.6 F 71 20 130/61 95 01/20/22 19:37 97.1 F 73 20 157/60 94 L 01/20/22 19:17 75 18 95 Pain Assessment - Last Documented Pain Intensity 0 Pain Scale Used [facility] Intake and Output: Intake & Output 01/19/22 01/20/22 01/21/22 01/22/22 11:59 11:59 11:59 11:59 Intake Total 440 1380 980 120 Output Total 5947 4207 4410 Balance -8241 -7561 -951 120 Weight 107.7 kg 107.6 kg 106.2 kg Multi-Disciplinary Progress Notes: Multi-Disciplinary Progress Notes 01/20/22 22:56 Nutrition Note by Chelsea Hannon F/u Note: Heart healthy diet cont with 71=766% po intake. Labs 01/18= BUN 23, glu 172, alb 2.9, hgb 10.8, hct 33.8, mcv 103.4. adm weight 112kg; current weight 107.6kg - note pt has had negative fluid balance. goal of po intake >=75% met and ongoing. Will con't to monitor and f/u prn. SAMANTHA Souza Initialized on 01/20/22 22:56 - END OF NOTE Assessment/Plan (1) Zoster Current Visit: Yes Status: Resolved Qualifiers: Herpes zoster complications: unspecified herpes zoster complication Qualified Code(s): B02.8 - Zoster with other complications Code(s): B02.9 - ZOSTER WITHOUT COMPLICATIONS (2) General weakness Current Visit: Yes Status: Acute Assessment & Plan: improved Code(s): R53.1 - WEAKNESS (3) COPD exacerbation Current Visit: Yes Status: Resolved Assessment & Plan: will need O2 at home ,is at baseline at this point clinically Code(s): J44.1 - CHRONIC OBSTRUCTIVE PULMONARY DISEASE W (ACUTE) EXACERBATION (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 Code(s): Z79.891 - HALFWAY (CURRENT) USE OF OPIATE ANALGESIC (5) Fall Current Visit: Yes Status: Resolved Qualifiers: Encounter type: initial encounter Qualified Code(s): W19.XXXA - Unspecified fall, initial encounter Assessment & Plan: needs PT at home for conditioning to prevent further falls Code(s): W19.XXXA - UNSPECIFIED FALL, INITIAL ENCOUNTER (6) Abrasion, face w/o infection Current Visit: Yes Status: Resolved Code(s): S00.81XA - ABRASION OF OTHER PART OF HEAD, INITIAL ENCOUNTER (7) Clonus Current Visit: Yes Status: Resolved Code(s): R25.8 - OTHER ABNORMAL INVOLUNTARY MOVEMENTS (8) Fusion of spine, cervical region Current Visit: Yes Status: Resolved Assessment & Plan: remote,reevaluated with fall Code(s): M43.22 - FUSION OF SPINE, CERVICAL REGION
[2022-01-21] MEDS: Ativan 0.5 MG PO SCH (21:15)
[2022-01-21] MEDS: Desyrel 150 MG PO SCH (21:19)
[2022-01-22] MEDS: DUONEB 0.5-3 MG/3 ml Neb IH SCH ×2 (06:45→10:24)
[2022-01-22] MEDS: DELTASONE 20 MG PO SCH ×2 (10:12→14:09)
[2022-01-22] MEDS: Dilantin 100 MG PO SCH (10:13)
[2022-01-22] MEDS: VITAMIN D PO SCH (10:14)
[2022-01-22] MEDS: FOLATE 1 MG PO SCH (10:14)
[2022-01-22] MEDS: KEFLEX 500 MG PO SCH ×2 (10:15→12:27)
[2022-01-22] MEDS: Requip 0.5 MG PO SCH ×2 (10:15→14:10)
[2022-01-22] MEDS: Protonix 40MG Tablet PO SCH (10:15)
[2022-01-22] MEDS: Lasix 40 MG PO SCH (10:15)
[2022-01-22] MEDS: NEURONTIN PO SCH ×2 (10:15→14:10)
[2022-01-22] MEDS: Nystatin SUSPENSION 60 ML PO SCH ×2 (10:16→12:27)
[2022-01-22] MEDS: ZOFRAN ODT 4 MG PO SCH (10:16)
[2022-01-22] MEDS: NYSTOP POWDER 15 GM TP SCH (10:17)
[2022-01-22] MEDS: Miralax Powder 17GM PACKET PO SCH (10:18)
[2022-01-22 10:25] VITALS: O2SAT 94
[2022-01-22] MEDS: TENORMIN 50 MG PO SCH (10:32)
--- NOTE | 2022-01-22 12:22 | PCM.DCORD ---
- Discharge Disposition: HOME HEALTH SERVICE Condition: Stable Prescriptions: New Nystatin/TCN/Hc/Diphenhydram [Pebbles's Magic Mouthwash] 10 ml PO QID #240 ml Continue atenoloL [Atenolol] 25 mg PO DAILY Trazodone HCl 50 mg [Desyrel 50 mg] 150 mg PO HS Omeprazole 40 mg PO BID Furosemide 40 mg PO DAILY Divalproex Sodium [Depakote] 500 mg PO TID Phenytoin Sodium Extended [Dilantin] 200 mg PO BID ondansetron HCL [Ondansetron HCl] 8 mg PO BID Ropinirole HCl 1 mg PO TID Folic Acid 0 mg PO DAILY Cholecalciferol (Vitamin D3) [Vitamin D3] 5,000 unit PO DAILY Potassium Chloride 20 meq PO DAILY Oxycodone HCl/Acetaminophen [Oxycodone-Acetaminophen 5-325] 1 each PO BIDPRN PRN PRN Reason: Pain Polyethylene Glycol 3350 17 gm [Miralax Powder 17GM PACKET] 17 gm PO DAILY Instructions: Shingles (DC), Oxygen Therapy, Adult (DC), Preventing Falls in Older Adults Additional Instructions: WEAR 2L/NC AT HOME, CALL [facility] AT [phone] WHEN YOU GET READY TO LEAVE [facility] SO THEY CAN DELIVER YOUR HOME OXYGEN [facility]. THEY WILL CONTACT YOU TO ARRANGE VISIT. THEIR PHONE NUMBER IS [phone]. A REFERRAL WAS ALSO SENT TO [facility] TO SEE IF THEY CAN ARRANGE FOR HOME DELIVERED MEALS, THEY SHOULD BE CONTACTING YOU. THEIR PHONE NUMBER IS [phone] Follow up with: CJ BAEZA DO [ACTIVE STAFF] - ISACC CALABRESE NP [Primary Care Provider] - 01/31/22 10:15 am
--- NOTE | 2022-01-22 12:46 | PCM.DS ---
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 She improved slowly with IV fluids and IV acyclovir. Patient had a fall while up to the bedside commode and started having clonus of bilateral upper extremities and was dropping her food. Teleneurologist evaluated and recommended MRI brain and C-spine eval which did not show any acute changes. - final outcome was that the clonus resolved after discontinuing the IV Acyclovir. Note patient has remote Hx fusion of C spine C/6. COPD exacerbation,wheezing improved with albuterol neb treatments but required O2 2L/NC to keep O2 sats above 90%. Patient agreed to Rehab facility ,waiting several days and did not hear back from Insurance. Home Health and PT ordered and O2 arranged through [facility]. Patient will follow up with her PCP in a week. - Vitals & Intake/Output Vital Signs: Vital Signs Temperature 97.3 F 01/22/22 08:00 Pulse Rate 73 01/22/22 10:32 Respiratory Rate 18 01/22/22 10:24 Blood Pressure 102/60 01/22/22 10:32 O2 Sat by Pulse Oximetry 94 L 01/22/22 10:24 Intake & Output: Intake & Output 01/20/22 01/21/22 01/22/22 01/23/22 11:59 11:59 11:59 11:59 Intake Total 1380 980 520 Output Total 7125 1700 1750 Balance -7149 -176 -6874 Weight 107.6 kg 106.2 kg - Lab Result Diagrams: 01/18/22 04:20 01/18/22 04:20 Micro Results-Entire Visit: Microbiology 01/15/22 04:20 Urine Culture - Final Catherized <10K NORMAL SKIN EDY PROBABLE SKIN CONTAMINANT 01/11/22 14:02 Blood Culture Gram Stain - Final Blood Not Reportable Blood Culture - Final NO GROWTH 01/11/22 13:58 Blood Culture Gram Stain - Final Blood Not Reportable Blood Culture - Final NO GROWTH - Procedures and Test Procedures and Tests throughout Hospitalization: Therapy Orders & Screens 01/11/22 18:54 Respiratory Therapy Assessment DAILY Comment: Diagnosis: Generalized weakness 01/12/22 08:00 OT Screen per Nursing Assess ONCE Comment: Protocol Order Physician Instructions: Greater than 3 points order OT Admission Screening Reason For Exam: Triggered on Admission Diagnosis: Generalized weakness Open Wound/Cellutlitis/Pressure Ulcers: Yes Acute Fx/ORIF/Change in wt bearing status: No Severe MUSCULOSKELETAL pain: No ADL Dysfunction: No Acute CVA w/Hemiparesis/Hemiplegia: No Decreased Functional Mobility/Strength: Yes Sprain/Strain: No Acute Post-op Mobility Dysfunction: No Total Points: 6 PT Screen per Nursing Assess ONCE Comment: Protocol Order Physician Instructions: Greater than 3 points order PT Admission Screenin Reason For Exam: Triggered on Admission Diagnosis: Generalized weakness Open Wound/Cellutlitis/Pressure Ulcers: Yes Acute Fx/ORIF/Change in wt bearing status: No Severe MUSCULOSKELETAL pain: No ADL Dysfunction: No Acute CVA w/Hemiparesis/Hemiplegia: No Decreased Functional Mobility/Strength: Yes Sprain/Strain: No Acute Post-op Mobility Dysfunction: No Total Points: 6 01/12/22 08:20 Oxygen Nasal Cannula 3 lpm Comment: Diagnosis: Generalized weakness 01/15/22 09:49 PT Eval & Treat ( Order) ONCE Reason for Eval:: weakness, nh placement Diagnosis: Generalized weakness 01/17/22 06:49 PT Eval & Treat (MD Order) ONCE Reason for Eval:: weakness and falls Diagnosis: ACUTE PAIN, SHINGLES 01/17/22 06:50 OT Eval and Treat (MD Order) ONCE Comment: Consulting Provider: Physician Instructions: Reason For Exam: weakness Diagnosis: ACUTE PAIN, SHINGLES 01/17/22 10:00 EEG 41-60 Minutes (Normal) ONCE Comment: Reason For Exam: myoclonus Diagnosis: ACUTE PAIN, SHINGLES 01/22/22 10:16 Qualify for Home Oxygen TODAY Comment: Diagnosis: ACUTE PAIN, SHINGLES Final Diagnosis/Problem List - Final Discharge Diagnosis/Problem (1) Zoster Status: Resolved Code(s): B02.9 - ZOSTER WITHOUT COMPLICATIONS (2) General weakness Status: Resolved Assessment & Plan: almost to baseline,will need assistance at home Code(s): R53.1 - WEAKNESS (3) COPD exacerbation Status: Resolved Assessment & Plan: Qualified for home O2,[employer] supplier Code(s): J44.1 - CHRONIC OBSTRUCTIVE PULMONARY DISEASE W (ACUTE) EXACERBATION (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 Assessment & Plan: follows with Dr Carey Code(s): Z79.891 - CALIBRATION CHECKER (CURRENT) USE OF OPIATE ANALGESIC (5) Fall Status: Resolved Assessment & Plan: home PT Code(s): W19.XXXA - UNSPECIFIED FALL, INITIAL ENCOUNTER (6) Abrasion, face w/o infection Status: Resolved Code(s): S00.81XA - ABRASION OF OTHER PART OF HEAD, INITIAL ENCOUNTER (7) Clonus Status: Resolved Assessment & Plan: resolved after Acyclovir dc'd Code(s): R25.8 - OTHER ABNORMAL INVOLUNTARY MOVEMENTS (8) Fusion of spine, cervical region Status: Resolved Code(s): M43.22 - FUSION OF SPINE, CERVICAL REGION - Discharge Disposition: HOME HEALTH SERVICE Condition: Stable Prescriptions: New Nystatin/TCN/Hc/Diphenhydram [Pebblse's Magic Mouthwash] 10 ml PO QID #240 ml Continue atenoloL [Atenolol] 25 mg PO DAILY Trazodone HCl 50 mg [Desyrel 50 mg] 150 mg PO HS Omeprazole 40 mg PO BID Furosemide 40 mg PO DAILY Divalproex Sodium [Depakote] 500 mg PO TID Phenytoin Sodium Extended [Dilantin] 200 mg PO BID ondansetron HCL [Ondansetron HCl] 8 mg PO BID Ropinirole HCl 1 mg PO TID Folic Acid 0 mg PO DAILY Cholecalciferol (Vitamin D3) [Vitamin D3] 5,000 unit PO DAILY Potassium Chloride 20 meq PO DAILY Oxycodone HCl/Acetaminophen [Oxycodone-Acetaminophen 5-325] 1 each PO BIDPRN PRN PRN Reason: Pain Polyethylene Glycol 3350 17 gm [Miralax Powder 17GM PACKET] 17 gm PO DAILY Instructions: Shingles (DC), Oxygen Therapy, Adult (DC), Preventing Falls in Older Adults Additional Instructions: WEAR 2L/NC AT HOME, CALL [facility] AT [phone] WHEN YOU GET READY TO LEAVE [facility] SO THEY CAN DELIVER YOUR HOME OXYGEN [facility] HAS BEEN SET UP. THEY WILL CONTACT YOU TO ARRANGE VISIT. THEIR PHONE NUMBER IS [phone]. A REFERRAL WAS ALSO SENT TO [facility] TO SEE IF THEY CAN ARRANGE FOR HOME DE LIVERED MEALS, THEY SHOULD BE CONTACTING YOU. THEIR PHONE NUMBER IS [phone] Follow up with: CJ BAEZA DO [ACTIVE STAFF] - SARAH CALABRESE FORM PRESS OPERATOR [Primary Care Provider] - 01/31/22 10:15 am
[2022-01-22 12:56] VITALS: BP 134/62; PULSE 72
== END 2022-01-22 14:30 | disposition home health service (06) | DRG 596 ==
LOC: ED 13:02 → MED SURG 17:36 → OBSVTOIN 01-13 08:30 → MED SURG 01-16 08:30
PROVIDERS: ADMIT Family Medicine; ATTEND Family Medicine
DX: B02.9 Zoster without complications (principal); J44.1 Chronic obstructive pulmonary disease with (acute) exacerbation; R53.1 Weakness; W19.XXXA Unspecified fall, initial encounter; S00.81XA Abrasion of other part of head, initial encounter; R25.8 Other abnormal involuntary movements; M43.22 Fusion of spine, cervical region; I10 Essential (primary) hypertension; E78.5 Hyperlipidemia, unspecified; Z79.891 Long term (current) use of opiate analgesic; Z79.899 Other long term (current) drug therapy; Z20.828 Contact with and (suspected) exposure to other viral communicable diseases
CPT/HCPCS: 0241U; 36000; 36415; 70450; 70551; 71045; 71046; 72125; 72141; 73521; 80053; 80185; 81015; 83605; 83735; 83880; 84443; 84484; 85025; 85027; 87040; 87086; 93005; 93268; 94640; 94760; 94762; 95812; 96374; 96375; 97110; 97161; 97165; 97530; 99285; G0378; J0696; J1940; J2270; J2405; J2920; J2930; J3420; J7609; Q0162; A9270-GY

== ENCOUNTER 2022-07-05 15:23 | Emergency (ER) | payer MEDICARE ==
--- NOTE | 2022-07-05 16:00 | ERPHSYRPT ---
- History of Present Illness Time Seen by Provider: 07/05/22 15:30 Source: patient Exam Limitations: other (Patient is extremely hard of hearing.) Patient Subjective Stated Complaint: pt states "I have this pain to my rt knee." Triage Nursing Assessment: pt came into the er; pt is axo x4; c/o rt knee pain; pt states 5/10 to rt knee; strong rt pedal pulse; good cap refill to RLE; pt denies fall or trauma to RLE; skin pdw; vitals wnl Physician History: Patient is a 72-year-old white female who presents with a complaint of right knee and leg pain. She says the leg is weak and is extremely painful especially when she tries to bear weight. Pain is localized from the knee to the foot. She denies any known injury. Occurred: yesterday Quality: aching Severity of Pain-Max: moderate Severity of Pain-Current: moderate Lower Extremities Pain: leg: right, knee: right, ankle: right, heel: right Modifying Factors: Improves With: movement Associated Symptoms: other (Hurts to bear weight) Allergies/Adverse Reactions: aspirin Allergy (Verified 07/05/22 15:27) Nausea naproxen Allergy (Verified 07/05/22 15:27) Nausea ketorolac [From Toradol] Adverse Reaction (Verified 07/05/22 15:27) Nausea Home Medications: Divalproex Sodium [Depakote] 500 mg PO TID 03/11/20 [History] Furosemide 40 mg PO DAILY 03/11/20 [History] Omeprazole 40 mg PO BID 03/11/20 [History] Phenytoin Sodium Extended [Dilantin] 200 mg PO BID 03/11/20 [History] Trazodone HCl 50 mg [Desyrel 50 mg] 150 mg PO HS 03/11/20 [History] atenoloL [Atenolol] 25 mg PO DAILY 03/11/20 [History] Cholecalciferol (Vitamin D3) [Vitamin D3] 5,000 unit PO DAILY 01/11/22 [History] Folic Acid 0 mg PO DAILY 01/11/22 [History] Oxycodone HCl/Acetaminophen [Oxycodone-Acetaminophen 5-325] 1 each PO BIDPRN PRN 01/11/22 [History] Polyethylene Glycol 3350 17 gm [Miralax Powder 17GM PACKET] 17 gm PO DAILY 01/11/22 [History] Potassium Chloride 20 meq PO DAILY 01/11/22 [History] Ropinirole HCl 1 mg PO TID 01/11/22 [History] ondansetron HCL [Ondansetron HCl] 8 mg PO BID 01/11/22 [History] Hx Tetanus, Diphtheria Vaccination/Date Given: Yes Hx Influenza Vaccination/Date Given: Yes Hx Pneumococcal Vaccination/Date Given: No Travel Risk - International Travel Have you traveled outside of the country in past 3 weeks: No - Coronavirus Screening Are you exhibiting any of the following symptoms?: No Close contact with a COVID-19 positive Pt in past 14-21 Days: No - Vaccine Status Have you recieved a Covid-19 vaccination: No - Review of Systems Constitutional: No Fever, No Chills Eyes: No Symptoms Ears, Nose, & Throat: No Symptoms Respiratory: No Cough, No Dyspnea Cardiac: No Chest Pain, No Edema, No Syncope Abdominal/Gastrointestinal: No Abdominal Pain, No Nausea, No Vomiting, No Diarrhea Genitourinary Symptoms: No Dysuria Musculoskeletal: No Back Pain, No Neck Pain Skin: No Rash Neurological: No Dizziness, No Focal Weakness, No Sensory Changes Psychological: No Symptoms Endocrine: No Symptoms All Other Systems: Reviewed and Negative - Past Medical History Pertinent Past Medical History: Yes Neurological History: Epilepsy ENT History: No Pertinent History Cardiac History: Hypertension Respiratory History: Asthma, COPD Endocrine Medical History: No Pertinent History Musculoskeletal History: Arthritis, Osteoporosis GI Medical History: No Pertinent History History: No Pertinent History Psycho-Social History: No Pertinent History Female Reproductive Disorders: No Pertinent History Other Medical History: RLS - Past Surgical History Past Surgical History: Yes Neuro Surgical History: No Pertinent History Cardiac: No Pertinent History Respiratory: No Pertinent History Gastrointestinal: No Pertinent History Genitourinary: No Pertinent History Musculoskeletal: No Pertinent History Female Surgical History: No Pertinent History Other Surgical History: ROTATOR CUFF, SPUR REMOVAL, CARPAL TUNNEL - Social History Smoking Status: Never smoker Exposure to second hand smoke: Yes Drug Use: none Patient Lives Alone: Yes - Nursing Vital Signs Nursing Vital Signs: Initial Vital Signs Temperature 98 F 07/05/22 15:23 Pulse Rate 70 07/05/22 15:23 Respiratory Rate 18 07/05/22 15:23 Blood Pressure 137/69 07/05/22 15:23 O2 Sat by Pulse Oximetry 98 07/05/22 15:23 Pain Scale Pain Intensity 2 - Physical Exam General Appearance: alert Eyes, Ears, Nose, Throat Exam: moist mucous membranes Neck Exam: non-tender, supple Cardiovascular/Respiratory Exam: chest non-tender, normal breath sounds, regular rate/rhythm, no respiratory distress Gastrointestinal/Abdominal Exam: non-tender, guarding Back Exam: normal inspection, No vertebral tenderness Legs Exam: right leg: limited range of motion, pain, soft tissue tenderness, swelling (Right lower extremity from the knee to the foot is slightly edematous generally tender to any movement and it is difficult for her to raise it off the bed.) Neuro/Tendon Exam: normal sensation, normal motor functions Mental Status Exam: alert, oriented x 3, cooperative Skin Exam: normal color, warm, dry SpO2 Interpretation: normal SpO2: 98 O2 Delivery: Room Air - Course Nursing assessment & vital signs reviewed: Yes - Radiology Exams Left Lower Leg X-ray Interpretation: Interpreted by me, Negative Ordered Tests: Active Orders 24 hr Category Date Time Status FOOT (MINIMUM 3 VIEWS) Stat Exams 07/05/22 15:32 Taken KNEE (1 OR 2 VIEW) Stat Exams 07/05/22 15:33 Taken LOWER LEG Stat Exams 07/05/22 15:33 Taken - Progress Progress: improved Progress Note: 07/05/22 18:14 After x-rays were negative patient was placed in a knee immobilizer was able to ambulate and bear weight. - Departure Departure Disposition: Home Clinical Impression: Strain of left knee Condition: Stable Critical Care Time: No Referrals: [facility] RN [Primary Care Provider] - Follow up/PCP as directed Instructions: Knee Sprain (DC)
--- NOTE | 2022-07-05 18:17 | XRAY ---
Exam: 3 view right foot series from 07/05/2022. Comparison: [None.] Indication: 72-year-old female with right foot pain and swelling. Findings: AP, oblique, and lateral radiographs of the right foot were obtained. I see no acute right foot fracture or dislocation. There is moderate soft tissue swelling overlying the dorsal aspect of the right forefoot. Correlate clinically. No radiopaque soft tissue foreign body is seen. I see no evidence of callus or periosteal reaction within the metatarsals to suggest a healing or stress fracture injury. The MTP joints are adequately maintained. Minimal degenerative change of the right first MTP joint is seen. I also note early/mild osteoarthritic changes of the interphalangeal joints of the right second through fifth toes. The tarsals align correctly with the metatarsals. Moderate hypertrophic spurring is seen at the dorsal aspect of the talonavicular joint and mild hypertrophic spurring is seen at the dorsal aspect of the tarsal-metatarsal junctions on the lateral radiograph. Prominent posterior right calcaneal spurring and moderate plantar right calcaneal spurring are seen. I also note some subtle soft tissue calcification inferior to the mid aspect of the right calcaneus of unclear etiology. A couple metallic clip densities are seen projected over the posterior margin of the right calcaneus. Correlate with surgical history. Impression: 1. I see no acute right foot fracture or dislocation. 2. Evidence of prior surgery at the posterior margin of the calcaneus with 2 metallic clip densities. Correlate with surgical history. 3. Moderate soft tissue swelling overlies the dorsal aspect of the right forefoot. Correlate clinically. No radiopaque soft tissue foreign body is seen. 4. Degenerative changes, as discussed above.
--- NOTE | 2022-07-05 18:21 | XRAY ---
Exam: Two-view right lower leg series from 07/05/2022. Comparison: [None.] Indication: 72-year-old female with right lower leg pain/swelling. Findings: AP and lateral radiographs of the right lower leg were obtained. Abundant soft tissues are seen about the right knee, right lower leg, and ankle. I see no acute fracture of the right tibia or fibula. The right ankle mortise appears unremarkable. I again see a couple small metallic surgical clips at the posterior aspect of the right calcaneus. No other focal bone lesion is seen. Impression: 1. No acute right lower leg fracture is seen.
--- NOTE | 2022-07-05 18:27 | XRAY ---
Exam: 2 views of the right knee from 07/05/2022. Comparison: [None.] Indication: 72-year-old female with right knee pain/swelling. Findings: AP and lateral radiographs of the right knee were obtained. I see no acute fracture, dislocation, or significant suprapatellar effusion. There is moderate spurring at the anterior superior margin of the right patella. Minimal posterior marginal patellar spurring is seen as well. The patellofemoral joint space is not optimally seen on the lateral image, but is probably narrowed. A sunrise view was not obtained. There is mild to moderate narrowing of the medial compartment of the right knee joint space. No significant osteophyte formation is seen. The lateral compartment of the right knee joint appears unremarkable. I see a small soft tissue calcification at both the anterior and posterior margins of the right knee joint on the lateral radiograph. Again, there is soft tissue prominence about the distal right thigh, knee, and visualized right calf. Impression: 1. No acute right knee fracture, dislocation, or significant suprapatellar effusion is seen. 2. There is at least mild bicompartmental osteoarthritis of the right knee affecting the medial compartment and patellofemoral joint.
[2022-07-05 18:51] VITALS: BP 137/71; PULSE 68; O2SAT 95
== END 2022-07-05 18:51 | disposition home or self-care (01) ==
LOC: ED 15:23
DX: S83.91XA Sprain of unspecified site of right knee, initial encounter (principal); M79.661 Pain in right lower leg; I10 Essential (primary) hypertension; Z79.891 Long term (current) use of opiate analgesic; Z79.899 Other long term (current) drug therapy; Z28.310 Unvaccinated for COVID-19
CPT/HCPCS: 73560; 73590; 73630; 99282; L1830